=== PATIENT | male | born 1970 | race Two or more races ===

== ENCOUNTER 2021-06-07 12:27 | Inpatient (IN) | payer MEDICAID ==
[~2021-06-07] VITALS: Ht 177.8 cm; Wt 70.0 kg
--- NOTE | 2021-06-07 12:45 | NUR ---
Pt is NOT responding to questions, Non-verbal- moans at times. Awake, Eyes wide open seems confused/disoriented +generalized jerky movements/Twitching constantly. CareGiver at bedside states "This got worse 3days ago".
[2021-06-07 13:31] LABS: BASOPHILS % (AUTO) 0.2 % (0.0-2.0); EOSINOPHILS % (AUTO) 0.4 % (0.0-6.0); HEMATOCRIT 26 % (39-51); HEMOGLOBIN 8.7 g/dL (13.5-17.5); LYMPHOCYTES # (AUTO) 0.2 K/uL (0.8-4.8); LYMPHOCYTES % (AUTO) 9.6 % (20.0-44.0); MEAN CORPUSCULAR HGB CONC 34 g/dl (31.0-36.0); MEAN CORPUSCULAR VOLUME 92 fL (80-96); MONOCYTES # (AUTO) 0.1 K/uL (0.1-1.30); MONOCYTES % (AUTO) 4.7 % (2.0-12.0); NEUTROPHILS # (AUTO) 1.8 K/uL (1.8-8.9); NEUTROPHILS % (AUTO) 85.1 % (43.0-81.0); RED BLOOD CELL COUNT(AUTO) 2.79 MIL/uL (4.5-6.0); WHITE BLOOD COUNT (AUTO) 2.1 K/uL (4.3-11.0)
[2021-06-07 13:36] LABS: PLATELET COUNT (AUTO) 41 K/uL (150-450)
[2021-06-07 13:51] LABS: SERUM AMMONIA 22 umol/L (11-32)
[2021-06-07 13:56] LABS: ALANINE AMINOTRANSFERASE 27 U/L (12-78); ALBUMIN 1.8 g/dL (3.4-5.0); ALCOHOL, BLOOD < 3 mg/dL (0-0); ALKALINE PHOSPHATASE 55 U/L (46-116); ASPARTATE AMINOTRANSFERASE 15 U/L (15-37); BILIRUBIN,DIRECT 0.2 mg/dL (0.0-0.2); BILIRUBIN,TOTAL 0.5 mg/dL (0.2-1.0); CALCIUM, SERUM 8.3 mg/dL (8.5-10.1); CARBON DIOXIDE 13 mmol/L (21-32); CHLORIDE 98 mmol/L (98-107); GLUCOSE 141 mg/dL (74-106); SODIUM SERUM 141 mmol/L (136-145); TOTAL PROTEIN, SERUM 9.3 g/dL (6.4-8.2)
[2021-06-07 13:58] LABS: UREA NITROGEN, BLOOD 204 mg/dL (7-18)
[2021-06-07 13:59] LABS: CREATININE 20.8 mg/dL (0.6-1.3)
[2021-06-07 14:00] LABS: ACETAMINOPHEN 0 ug/ml (10-30); THYROID STIMULATING HORMONE 0.666 uIU/mL (0.358-3.74)
[2021-06-07 14:03] LABS: EOSINOPHILS % (MANUAL) 2 % (0-4); LYMPHOCYTES % (MANUAL) 10 % (16-48); MONOCYTES % (MANUAL) 2 % (0-11.0); NEUTROPHILS % (MANUAL) 86 (42-76)
--- NOTE | 2021-06-07 14:15 | NUR ---
MOVE SHEET SUBMITTED.
--- NOTE | 2021-06-07 14:29 | NUR ---
[facility] CALLED PAYROLL ANALYST PAGED.
[2021-06-07] MEDS ORDERED: DEXTROSE 50%-WATER 50 ML DISP.SYRIN IV ONE (14:30)
[2021-06-07] MEDS ORDERED: FUROSEMIDE 40 MG/4 ML VIAL IV ONE (14:30)
[2021-06-07] MEDS ORDERED: DEXTROSE 50%-WATER 50 ML DISP.SYRIN ONE (14:30)
[2021-06-07] MEDS ORDERED: IV NS 0.9% 1,000 ML BAG IV ONE (14:30)
[2021-06-07] MEDS ORDERED: CALCIUM CHLORIDE 1,000 MG/10 ML DISP.SYRIN IV ONE (14:30)
[2021-06-07] MEDS ORDERED: FUROSEMIDE 40 MG/4 ML VIAL ONE (14:30)
[2021-06-07] MEDS ORDERED: SODIUM BICARBONATE SYR 50 MEQ/50 ML DISP.SYRIN IV ONE (14:30)
[2021-06-07] MEDS ORDERED: ALBUTEROL FS 2.5 MG/3 ML VIAL.NEB NEB ONE (14:30)
[2021-06-07] MEDS ORDERED: INSULIN REGULAR, HUMAN 100 UNIT/ML 10 ML VIAL SQ ONE (14:30)
[2021-06-07] MEDS ORDERED: SODIUM BICARBONATE SYR 50 MEQ/50 ML DISP.SYRIN ONE (14:30)
[2021-06-07] MEDS ORDERED: INSULIN REGULAR, HUMAN 100 UNIT/ML 10 ML VIAL ONE (14:30)
--- NOTE | 2021-06-07 14:30 | NUR ---
Hyperkalemic- Meds given as per orders.
[2021-06-07] MEDS ORDERED: CALCIUM CHLORIDE 1,000 MG/10 ML DISP.SYRIN ONE (14:32)
[2021-06-07] MEDS ORDERED: Z GUARD REMEDY 2 OZ OINT TP PRN (15:00)
[2021-06-07] MEDS ORDERED: MAG HYDROX/AL HYDROX/SIMETH 30 ML UDC PO PRN (15:00)
[2021-06-07] MEDS ORDERED: MAGNESIUM HYDROXIDE 30 ML UDC PO PRN (15:00)
[2021-06-07] MEDS ORDERED: ALBUTEROL FS 2.5 MG/3 ML VIAL.NEB ONE (15:08)
[2021-06-07 15:09] LABS: URIC ACID 18.3 mg/dL (2.6-7.2)
[2021-06-07] MEDS ORDERED: hydrALAZINE HCL IV 20 MG VIAL ONE (15:14)
[2021-06-07] MEDS ORDERED: hydrALAZINE HCL IV 20 MG VIAL IV PRN (15:30)
[2021-06-07 15:46] LABS: POTASSIUM 6.4 mmol/L (3.5-5.1)
[2021-06-07 15:47] LABS: CREATININE 20.2 mg/dL (0.6-1.3)
--- NOTE | 2021-06-07 16:33 | NUR ---
Pt remains confused but is now able to say 1word sentences. Pulled IV line on Right Hand. Bleeding- controlled with direct pressure. Still awaiting ICU bed
--- NOTE | 2021-06-07 16:45 | NUR ---
Dr Antunez called w/request for [employer]. States "patient needs dialysis and he will need access."
[2021-06-07] MEDS ORDERED: DESMOPRESSIN 20 MCG in IV NS 0.9% 50 ML IV ONE (17:30)
[2021-06-07] MEDS ORDERED: LORAZEPAM INJ 2 MG/ML VIAL ONE (17:35)
--- NOTE | 2021-06-07 17:35 | NUR ---
Pt agitated/screaming/kicking and pulling on lines while being prepared for Dialysis cath insertion. Restraints applied as ordered by Blas Coughlin, Medicated.
[2021-06-07] MEDS ORDERED: KETAMINE HCL (500MG/10ML) 50 MG/ML VIAL ONE (17:41)
--- NOTE | 2021-06-07 17:45 | NUR ---
SMITH Coughlin at bedside to insert Dialysis access. Medicated as ordered
[2021-06-07] MEDS ORDERED: LORAZEPAM INJ 2 MG/ML VIAL IV ONE (18:00)
[2021-06-07] MEDS ORDERED: KETAMINE HCL(200MG/20ML) 10 MG/ML VIAL IV ONE (18:00)
--- NOTE | 2021-06-07 18:15 | NUR ---
Covid swab sent
--- NOTE | 2021-06-07 18:36 | NUR ---
GOT ICU BED 258 READY AFTER 1929
[2021-06-07] MEDS ORDERED: DESMOPRESSIN 4 MCG/ML AMPUL ONE ×2 (19:59→20:01)
[2021-06-07] MEDS ORDERED: LORAZEPAM INJ 2 MG/ML VIAL IV PRN (20:00)
[2021-06-07 20:30] VITALS: BP 156/90
--- NOTE | 2021-06-07 20:30 | NUR ---
report given to kalee joel. transferred pt to icu 256 via acls protocol in stable condition. all belongings and meds with pt.
--- NOTE | 2021-06-07 20:35 | NUR ---
HISTORICAL MANUSCRIPTS CURATOR: PT ADMITTED TO ICU FOR RENAL FAILURE AND WILL HAVE EMERGENT HEMODIALYSIS. PT. ON 3L 02 VIA NC BUT KEEPS REMOVING 02 THERAPY. REMAINS 02 SAT 94% AND ABOVE AT ROOM AIR. WT EPISODES OF RESTLESSNESS AND INTERMITTENT TWITCHING. SR WT BBB ON FISHER HAND LINE. F/C INTACT AND PATENT DRAINING CLEAR YELLOW URINE TO GRAVITY. RT. FEMORAL HD CATH IN PLACE. LT. HAND IV SITE INTACT WT NO S/S OF INFILTRATION. HOB AT 35 DEGREES. BED IN LOWEST POSITION AND LOCKED, BED ALARM ACTIVATED. SIDERAILS UP X2. CALL LIGHT KEPT WITHIN REACH. WILL CONTINUE TO MONITOR.
[2021-06-07 21:00] VITALS: BP 135/73
[2021-06-07 21:12] LABS: BILIRUBIN,URINE NEGATIVE (NEGATIVE); COLOR,URINE YELLOW (YELLOW); LEUKOCYTE ESTERASE ,URINE NEGATIVE (NEGATIVE); NITRITE, URINE NEGATIVE (NEGATIVE); PROTEIN,URINE 30 mg/dl (NEGATIVE); UGLUCOSE 100 MG/DL mg/dL (NEGATIVE); UROBILINOGEN,URINE 0.2 EU/dL (0.2)
[2021-06-07 21:17] LABS: BACTERIA,URINE None seen /HPF (None Seen); RBC,URINE 21-50 /HPF (0-2); SQUAMOUS EPITHELIAL CELL,UR 0-2 /HPF (None Seen)
[2021-06-07 21:19] LABS: CREATININE, URINE 38.4 MG/DL (30.0-125.0); URINE TOTAL PROTEIN 226.7 mg/dL (0-11.9)
[2021-06-07 21:30] VITALS: BP 132/67
[2021-06-07] MEDS: IV NS 0.9% 1,000 ML IV PRN (21:32)
[2021-06-07 21:43] LABS: EOSINOPHIL,URINE None Seen
--- NOTE | 2021-06-07 21:45 | NUR ---
HIDES SOAKER: HEMODIALYSIS STARTED. PT. REMAINS NON-VERBAL, UNABLE TO FOLLOW COMMANDS. WT EPISODES OF TRYING TO PULL TUBINGS. BILAT. SOFT WRIST RESTRAINTS IN PLACE. SKIN AND CIRCULATION WNL. WILL CONTINUE TO MONITOR.
[2021-06-07 22:00] VITALS: BP 153/73
[2021-06-07 23:00] VITALS: BP 117/74
--- NOTE | 2021-06-07 23:45 | NUR ---
SALES ORDER CLERK: HEMODIALYSIS DONE WT NO ADVERSE REACTIONS. 2L FLUID REMOVED. PT. REMAINED NON-VERBAL, CONFUSED WT RESTLESSNESS. SR-ST WT HR IN 90s TO LOW 100s. 94% AND ABOVE 02 SAT ON ROOM AIR. SAFETY PRECAUTION NOTED AT ALL TIMES.
[2021-06-08] VITALS (13 sets, daily range): BP systolic 116–162; BP diastolic 67–102
[2021-06-08 04:23] LABS: BASOPHILS % (AUTO) 0.4 % (0.0-2.0); EOSINOPHILS % (AUTO) 0.7 % (0.0-6.0); HEMATOCRIT 22 % (39-51); HEMOGLOBIN 7.6 g/dL (13.5-17.5); LYMPHOCYTES # (AUTO) 0.2 K/uL (0.8-4.8); LYMPHOCYTES % (AUTO) 8.7 % (20.0-44.0); MEAN CORPUSCULAR HGB CONC 34 g/dl (31.0-36.0); MEAN CORPUSCULAR VOLUME 93 fL (80-96); MONOCYTES # (AUTO) 0.1 K/uL (0.1-1.30); NEUTROPHILS # (AUTO) 1.7 K/uL (1.8-8.9); NEUTROPHILS % (AUTO) 87.2 % (43.0-81.0); RED BLOOD CELL COUNT(AUTO) 2.41 MIL/uL (4.5-6.0)
[2021-06-08 04:49] LABS: ALBUMIN 1.7 g/dL (3.4-5.0); BILIRUBIN,TOTAL 0.6 mg/dL (0.2-1.0); CALCIUM, SERUM 8.6 mg/dL (8.5-10.1); POTASSIUM 5.9 mmol/L (3.5-5.1)
[2021-06-08 05:04] LABS: PLATELET COUNT (AUTO) 38 K/uL (150-450)
[2021-06-08 05:06] LABS: WHITE BLOOD COUNT (AUTO) 1.9 K/uL (4.3-11.0)
[2021-06-08 05:14] LABS: CREATININE 14.9 mg/dL (0.6-1.3); PHOSPHORUS 9.7 mg/dL (2.5-4.9)
--- NOTE | 2021-06-08 05:45 | NUR ---
ELECTRIC ARC WELDER: CALLED AND NOTIFIED DR. [facility]. RESULTS: WBC=1.9 FROM 2.1, PLATELETS=38 FROM 41, PHOSPHORUS=9.7, MSY=461 FROM 198, CREAT.=14.9 FROM 20.2; BLEEDS EASILY WHEN POKE WT LAB. DRAW; NO NEW ORDERS AND SAID TO DEFER TO AUDITOR APPRAISER. PT HAS BEEN MORE AWAKE, FOLLOW SIMPLE COMMANDS BUT STILL CONFUSED. REMAINED ROOM AIR. VS WITHIN HIS BASELINE. WILL CONTINUE TO MONITOR.
[2021-06-08] MEDS ORDERED: POTASSIUM CL. PREMIX PERIPHER. 50 ML IV SCH (07:00)
[2021-06-08] MEDS: IV NS 0.9% 1,000 ML IV PRN ×2 (10:11→18:57)
[2021-06-08 10:18] LABS: BAND % (MANUAL) 4 % (0.0-5.0); EOSINOPHILS % (MANUAL) 2 % (0-4); LYMPHOCYTES % (MANUAL) 16 % (16-48); MONOCYTES % (MANUAL) 6 % (0-11.0)
[2021-06-08 10:21] LABS: NEUTROPHILS % (MANUAL) 72 (42-76)
--- NOTE | 2021-06-08 11:05 | NUR ---
RN NOTE PATIENT ON ALVAREZ CATHETER HEMATURIA NOTED, MD AWARE PATIENT PLATELET IS 38
--- NOTE | 2021-06-08 11:05 | NUR ---
RN NOTE PATIENT RECEIVED FROM ICU, PATIENT ON SOFT WRIST RESTRAINTS ATTEMPTING TO PULL IV SITE AND ALVAREZ CATHETER. MADE AWARE.
--- NOTE | 2021-06-08 12:30 | NUR ---
SS note: SS requested to locate next of kin. SW met with pt at his bedside in the med-surg unit. Pt is a 50-year old, male. Pt was alert and oriented x1. Pt presented calm. Pt appeared appropriately groomed. Pt was not responding to questions asked by this SW and would only respond, 'Yes' or nod. Pt presented confused and had to be redirected multiple times. SW attempted to locate next of kin but was unable to obtain information from the pt. MISA spoke to pt's RN Tano. Tano stated that he observed that the pt does not readily respond to questions, but has responded previously. ZULEIKA Freedman stated that next of kin has not been located at this time. Pt's friend will be visiting later today. ZULEIKA Freedman to contact SS for further follow up as needed.
--- NOTE | 2021-06-08 15:22 | NUR ---
RN NOTE PATIENT ON HD, TOLERATING WELL AT THIS TIME.
--- NOTE | 2021-06-08 18:15 | NUR ---
RN NOTE PATIENT IN OBSERVED ON BED, ON O2 VIA NC @3LPM O2 SAT OF 98% TOLERATING WELL, BREATHING EVEN AND UNLABORED, BILATERAL WRIST RESTRAINT SKIN INTACT NO SKIN BREAKDOWN NOTED, PATIENT S/P HD 2000ML REMOVED TOLERATED WELL, PATIENT SEEN BY DR. WALLY BEY MD REGARDING PATIENT CURRENT CONDITION. ON ALVAREZ CATHETER DRAINING WELL VIA GRAVITY, NO HEMATURIA NOTED, ON TELE MONITOR SR NO CHEST PAIN OBSERVED AT THIS TIME, WILL CONTINUE TO MONITOR PATIENT, SAFETY MEASURE OBSERVED, BED WHEELS LOCK, CALL LIGHT WITHIN REACH, WILL ENDORSE TO NOC SHIFT.
--- NOTE | 2021-06-08 18:30 | NUR ---
RN NOTE PATIENT WITH RIGHT FEMORAL HD CATH, IV SITE SITE PATENT INFUSING WELL.
--- NOTE | 2021-06-08 19:40 | NUR ---
RN OPENING NOTE REC'D REPORT FROM ZULEIKA STEELE. REC'D PT IN BED, NON VERBAL, AWAKE. ON ROOM AIR. NO RESP DISTRESS NOTED. NO SOB NOTED. BREATHING EVEN AND UNLABORED. PT ON TELE MONITORING PRESENTS WITH NSR, HEART RATE OF 87. BASELINE TO PT. PT HAS IV SITE, LEFT HAND #22, FLUSHED ASEPTICALLY. FEM HD CATH NOTED. INTACT. ALVARZE CATH PRESENT, VERY MINIMAL BUT PINK TINGED URINE NOTED. SOFT KAMALJIT WRIST RESTRAINTS IN PLACE. PT CONTINUES TO BE CONFUSED, DOES NOT RESPOND TO REORIENTATION, DOES NOT COMPLY WITH INSTRUCTION. CONTINUES TO PULL AT IV AND ALVAREZ CATH. NOURISHMENT PROVIDED. SAFETY MEASURES IN PLACE. APPLICABLE ISOLATION PRECAUTION IN PLACE. HOB ELEVATED. SIDE RAILS X2 BED LOCKED IN LOWEST POSITION. WITH BED ALARM ON. CALL LIGHT WITHIN REACH. NO S/S OF PAIN. ALL NEEDS ATTENDED AT THIS TIME. WILL CONT TO MONITOR.
[2021-06-08] MEDS: ONDANSETRON HCL/PF 4 MG/2 ML VIAL IVP PRN (23:12)
--- NOTE | 2021-06-08 23:16 | NUR ---
RN NOTE PT HAD 1 EPISODE OF VOMITTING, SMALL AMOUNT, GREEN COLORED. PRN ZOFRAN ADMINISTERED 4MG ORDERED.
[2021-06-09] VITALS: BP 155/86
--- NOTE | 2021-06-09 00:03 | NUR ---
RN NOTE NO NEW EPISODES OF EMESIS NOTED, NO S/S OF ASPIRATION AT THIS TIME. PT HOB ELEVATED. WILL CONT TO MONITOR,
[2021-06-09] MEDS: IV NS 0.9% 1,000 ML IV PRN ×2 (01:25→17:39)
--- NOTE | 2021-06-09 02:11 | NUR ---
POSSIBLE TRANSFER SPOKE WITH PHOEBE FROM [facility], REGARDING PT FOR TRANSFER. NO CURRENT ORDER BY HOSPITALIST , BUT PER MORTGAGE SERVICING SPECIALIST. TRANSFER PLANNING IN PLACE.
[2021-06-09 04:00] VITALS: BP 145/96
[2021-06-09] MEDS: ONDANSETRON HCL/PF 4 MG/2 ML VIAL IVP PRN (05:47)
[2021-06-09 06:40] LABS: BASOPHILS % (AUTO) 0.1 % (0.0-2.0); EOSINOPHILS % (AUTO) 1.6 % (0.0-6.0); HEMATOCRIT 21 % (39-51); HEMOGLOBIN 7.1 g/dL (13.5-17.5); LYMPHOCYTES # (AUTO) 0.2 K/uL (0.8-4.8); LYMPHOCYTES % (AUTO) 9.5 % (20.0-44.0); MEAN CORPUSCULAR HGB CONC 34 g/dl (31.0-36.0); MEAN CORPUSCULAR VOLUME 92 fL (80-96); MONOCYTES # (AUTO) 0.1 K/uL (0.1-1.30); MONOCYTES % (AUTO) 3.4 % (2.0-12.0); NEUTROPHILS # (AUTO) 1.4 K/uL (1.8-8.9); NEUTROPHILS % (AUTO) 85.4 % (43.0-81.0); RED BLOOD CELL COUNT(AUTO) 2.27 MIL/uL (4.5-6.0)
[2021-06-09 06:58] LABS: ALBUMIN 1.6 g/dL (3.4-5.0); BILIRUBIN,TOTAL 0.7 mg/dL (0.2-1.0); CALCIUM, SERUM 7.9 mg/dL (8.5-10.1); MAGNESIUM 2.3 mg/dL (1.8-2.4); POTASSIUM 4.7 mmol/L (3.5-5.1); TOTAL PROTEIN, SERUM 8.5 g/dL (6.4-8.2)
--- NOTE | 2021-06-09 07:11 | NUR ---
RN CLOSING NOTE PT IS NOTED TO BE MORE AWAKE, MEMORY IS HAZY, PT VERBALIZED HE DOESNT REMEMBER WHAT HAPPENED. ORIENTED PT TO UNIT, MARKETING SEGMENT MANAGER UTILIZED. PT IS STABLE AT THIS TIME. SAFETY MEASURES IN PLACE. HOB ELEVATED. SIDE RAILS X2 BED LOCKED IN LOWEST POSITION. WITH BED ALARM ON. CALL LIGHT WITHIN REACH. NO S/S OF PAIN. ALL NEEDS ATTENDED AT THIS TIME. WILL ENDORSE TO DAY SHIFT FOR CONT OF CARE
[2021-06-09 07:15] LABS: URIC ACID 6.1 mg/dL (2.6-7.2)
--- NOTE | 2021-06-09 07:30 | NUR ---
RN NOTE PATIENT IN OBSERVED ON BED, ON ROOM AIR O2 SAT OF 98% TOLERATING WELL, BREATHING EVEN AND UNLABORED, BILATERAL WRIST RESTRAINT SKIN INTACT NO SKIN BREAKDOWN NOTED, PATIENT SEEN BY DR. SHARIF UPDATED MD REGARDING PATIENT CURRENT CONDITION. ON ALVAREZ CATHETER DRAINING WELL VIA GRAVITY, ON TELE MONITOR SR NO CHEST PAIN OBSERVED AT THIS TIME, WILL CONTINUE TO MONITOR PATIENT, SAFETY MEASURE OBSERVED, BED WHEELS LOCK, CALL LIGHT WITHIN REACH.
[2021-06-09 07:37] LABS: PLATELET COUNT (AUTO) 28 K/uL (150-450); WHITE BLOOD COUNT (AUTO) 1.7 K/uL (4.3-11.0)
--- NOTE | 2021-06-09 07:39 | NUR ---
RN NOTE NOTIFIED DR. SHARIF WBC OF 1.7 AND PLATELET OF 28, WILL FOLLOW UP WITH .
[2021-06-09 08:00] VITALS: BP 145/96
[2021-06-09 08:18] LABS: PHOSPHORUS 8.2 mg/dL (2.5-4.9)
--- NOTE | 2021-06-09 08:54 | NUR ---
RN NOTE PATIENT SEEN BY DR. SHARIF, UPDATED MD REGARDING BUN AND CREATINE LEVEL, WBC AND PLATELET, WILL CONTINUE TO MONITOR PATIENT.
[2021-06-09 09:56] LABS: BAND % (MANUAL) 1 % (0.0-5.0); EOSINOPHILS % (MANUAL) 1 % (0-4); LYMPHOCYTES % (MANUAL) 11 % (16-48); MONOCYTES % (MANUAL) 2 % (0-11.0); NEUTROPHILS % (MANUAL) 85 (42-76)
[2021-06-09 10:07] LABS: *SPE A/G RATIO 0.4 (0.7-1.7); *SPE ALPHA-1-GLOBULIN 0.5 g/dL (0.0-0.4); *SPE BETA GLOBULIN 0.8 g/dL (0.7-1.3); *SPE M-SPIKE 2.8 g/dL (Not Observed)
[2021-06-09 12:00] VITALS: BP 145/96
[2021-06-09 16:00] VITALS: BP 127/88
[2021-06-09] MEDS: ACETAMINOPHEN 325 MG TABLET PO PRN (18:11)
--- NOTE | 2021-06-09 18:58 | NUR ---
RN NOTE PATIENT IN OBSERVED ON BED, ON ROOM AIR O2 SAT OF 98% TOLERATING WELL, BREATHING EVEN AND UNLABORED, BILATERAL WRIST RESTRAINT SKIN INTACT NO SKIN BREAKDOWN NOTED, PATIENT SEEN BY DR. SHARIF UPDATED MD REGARDING PATIENT CURRENT CONDITION. ON ALVAREZ CATHETER DRAINING WELL VIA GRAVITY, ADMINSITERED TYLENOL ORDERED BY DR. MONTES, SEEN AND EVALUATED BY DR. MONTES ON TELE MONITOR SR NO CHEST PAIN OBSERVED AT THIS TIME, WILL CONTINUE TO MONITOR PATIENT, SAFETY MEASURE OBSERVED, BED WHEELS LOCK, CALL LIGHT WITHIN REACH. WILL ENDORSE TO NOC SHIFT.
--- NOTE | 2021-06-09 19:45 | NUR ---
RN NOTE RECEIVED PT IN BED, SLEEPING AROUSES EASILY, CONFUSED. NO S/SX OF DISTRESS NOTED. ON ROOM AIR SATING AT 96 %. ON TELE MONITORING SHOWS SR WITH HR OF 90. PT BILATERAL WRIST RESTRAINTS, GOOD CIRCULATION, NO SIGNS OF PAIN NOTED. MIDLINE PATENT AND INTACT, NS RUNNING AT 75ML/HR. R FEMORAL HD CATH INTACT, NO BLEEDING NOTED. ALVAREZ DRAINING WELL WITH CLEAR YELLOW URINE. ALL SAFETY MEASURES WERE IN PLACE PER PROTOCOL. WILL CONTINUE TO MONITOR.
[2021-06-09 20:00] VITALS: BP 150/81
[2021-06-10] VITALS: BP 159/83
[2021-06-10 04:00] VITALS: BP 145/85
[2021-06-10] MEDS: ACETAMINOPHEN 325 MG TABLET PO PRN (04:43)
--- NOTE | 2021-06-10 04:43 | NUR ---
RN NOTE NOTED T AT 100.9. PT ALSO COMPLAINING OF BACK PAIN. TYLENOL GIVEN, WILL CONTINUE TO MONITOR.
[2021-06-10] MEDS: IV NS 0.9% 1,000 ML IV PRN ×2 (06:16→20:00)
[2021-06-10 06:36] LABS: BASOPHILS % (AUTO) 0.1 % (0.0-2.0); EOSINOPHILS % (AUTO) 2.4 % (0.0-6.0); LYMPHOCYTES # (AUTO) 0.1 K/uL (0.8-4.8); LYMPHOCYTES % (AUTO) 11.4 % (20.0-44.0); MEAN CORPUSCULAR HGB CONC 34 g/dl (31.0-36.0); MEAN CORPUSCULAR VOLUME 93 fL (80-96); MONOCYTES # (AUTO) 0.1 K/uL (0.1-1.30); MONOCYTES % (AUTO) 4.8 % (2.0-12.0); NEUTROPHILS # (AUTO) 0.9 K/uL (1.8-8.9); NEUTROPHILS % (AUTO) 81.3 % (43.0-81.0)
--- NOTE | 2021-06-10 06:47 | NUR ---
RN NOTE BODY TEMP WENT DOWN TO 98.6. PT ABLE TO FOLLOW SIMPLE COMMANDS. NO CHANGES IN LOC NOTED. CONTINUE WITH RESTRAINTS, GOOD CIRCULATION, NO SKIN BREAKDOWN WERE NOTED. MIDLINE REMAIN PATENT AND INTACT, IV NS AT 75ML/HR. ALVAREZ DRAINING WELL. ALL SAFETY MEASURES MAINTAINED. WILL ENDORSE TO NEXT SHIFT NURSE FOR ZOYA.
--- NOTE | 2021-06-10 07:22 | NUR ---
RN NOTE PATIENT IS IN BED WITH HOB AT SEMI FOWLERS POSITION. PATIENT IS ON ROOM AIR WITH NO SIGNS OF LABORED BREATHING. PATIENT IS AOX1 AND CONFUSED. SOFT BILATERAL WRIST RESTRAINTS ARE APPLIED. STEPHAN MIDLINE IS PATENT AND INTACT. BED IS LOCKED IN THE LOWEST POSITION, 3 GUARD RAILS RAISED, CALL SEXTON WITHIN REACH, AND ALL HOSPITAL SAFETY PRECAUTIONS ARE BEING FOLLOWED. WILL CONTINUE TO MONITOR THROUGHOUT SHIFT.
[2021-06-10 07:29] LABS: WHITE BLOOD COUNT (AUTO) 1.1 K/uL (4.3-11.0)
[2021-06-10 07:30] LABS: HEMATOCRIT 18 % (39-51); HEMOGLOBIN 6.1 g/dL (13.5-17.5); PLATELET COUNT (AUTO) 22 K/uL (150-450); RED BLOOD CELL COUNT(AUTO) 1.94 MIL/uL (4.5-6.0)
--- NOTE | 2021-06-10 07:35 | NUR ---
RN NOTE NOTIFIED DR. SHARIF OF CRITICAL LABS 1.1 WBC, H/H 6.1/18, PLATELETS 22
[2021-06-10 08:00] VITALS: BP 141/77
[2021-06-10] MEDS: SEVELAMER CARBONATE 800 MG TABLET PO SCH ×3 (09:47→17:06)
[2021-06-10] MEDS ORDERED: NEPRO VAN 237 ML CAN PO PRN (10:30)
[2021-06-10] MEDS: PIPERACILLIN /TAZOBACTAM 2.25 G in IV D5W 50 ML IV SCH ×2 (10:52→22:09)
[2021-06-10 11:53] LABS: EOSINOPHILS % (MANUAL) 3 % (0-4); LYMPHOCYTES % (MANUAL) 10 % (16-48); MONOCYTES % (MANUAL) 1 % (0-11.0); NEUTROPHILS % (MANUAL) 83 (42-76)
[2021-06-10] MEDS: TBO-FILGRASTIM 480 MCG/0.8 ML ML SQ SCH (15:19)
[2021-06-10 15:30] LABS: BILIRUBIN,TOTAL 0.4 mg/dL (0.2-1.0); CALCIUM, SERUM 7.4 mg/dL (8.5-10.1); POTASSIUM 4.9 mmol/L (3.5-5.1); TOTAL PROTEIN, SERUM 7.7 g/dL (6.4-8.2)
[2021-06-10 15:32] LABS: CREATININE 11.8 mg/dL (0.6-1.3)
[2021-06-10 15:34] LABS: ALBUMIN 1.4 g/dL (3.4-5.0)
[2021-06-10 15:37] LABS: D-DIMER 3.9 mg/L(FEU (0.17-0.50)
[2021-06-10 16:00] VITALS: BP 146/80
--- NOTE | 2021-06-10 18:59 | NUR ---
RN NOTE PATIENT IS IN BED WITH HOB AT SEMI FOWLERS POSITION. PATIENT IS ON ROOM AIR WITH NO SIGNS OF LABORED BREATHING. PATIENT IS AOX1 AND CONFUSED. SOFT BILATERAL WRIST RESTRAINTS ARE APPLIED. STEPHAN MIDLINE IS PATENT AND INTACT. BED IS LOCKED IN THE LOWEST POSITION, 3 GUARD RAILS RAISED, CALL SEXTON WITHIN REACH, AND ALL HOSPITAL SAFETY PRECAUTIONS ARE BEING FOLLOWED. ALL DUE MEDS GIVEN AND PATIENT REMAINED STABLE THROUGHOUT SHIFT. WILL ENDORSE TO TREE TRIMMER RN.
--- NOTE | 2021-06-10 19:30 | NUR ---
RN OPENING NOTES: RECEIVED PT A/OX1-2 IN BED RESTING COMFORTABLY. PATIENT IN NO S/SX OF ACUTE DISTRESS AT THIS TIME. NO SOB NOTED. PATIENT'S BREATHING IS EVEN AND UNLABORED. PATIENT IS ON ROOM AIR; TOLERATING WELL WITH 02 SAT OF 97% AT THE TIME OF RECEIVED. PATIENT ON RENAL DIET; TOLERATES WELL. NOTED IV SITE ON R UA MIDLINE #18 ; PATENT, INTACT AND FLUSHING WELL; NO S/S OF INFECTION OR INFILTRATION. WITH IV FLUID RUNNING ORDERED.PT ALSO HAS R FEMORAL HD CATH; SECURED AND INTACT NO SIGNS OF INFECTION. ALVAREZ CATH IN PLACE, SMALL AMOUNT OF URINE OUTPUT NOTED. WITH BILATERAL SOFT RESTRAINTS IN PLACED, MONITORED AND ASSESSED PER PROTOCOL. AWAITING FOR BLOOD FROM [facility] FOR BLOOD TRANSFUSION WILL FOLLOW UP WITH LAB WITHIN THE SHIFT. SAFETY MEASURES HAVE BEEN PROVIDED AND IMPLEMENTED. PATIENT BED ALARM IS ON. HEAD OF BED ELEVATED. BED IS LOCKED, IN LOWEST POSITION AND SIDE RAILS UP. CALL LIGHT WITHIN REACH OF THE PATIENT. APPLICABLE ISOLATION PRECAUTIONS IN PLACE. WILL CONTINUE TO MONITOR AND REASSESS FOR ANY CHANGES AND WILL CARRY OUT ANY ONGOING AND ACTIVE MD ORDER.
[2021-06-10 20:00] VITALS: BP 148/70
[2021-06-10] MEDS ORDERED: VANCOMYCIN 1 GM in IV D5W 250 ML IV ONE (21:00)
[2021-06-10] MEDS: ONDANSETRON HCL/PF 4 MG/2 ML VIAL IVP PRN (23:48)
[2021-06-11] VITALS (9 sets, daily range): BP systolic 124–146; BP diastolic 63–86
--- NOTE | 2021-06-11 | NUR ---
RN NOTES PATIENT REMAINED TO BE IN NO SIGNS OF ACUTE RESPIRATORY DISTRESS ,STONE CARRIAGE OPERATOR MADE AWARE. WILL CONTINUE TO MONITOR AND REASSESS FOR ANY CHANGES THROUGHOUT THE SHIFT.
--- NOTE | 2021-06-11 03:40 | NUR ---
ZULEIKA NOTES CALLED LAB, TO FOLLOW UP BLOOD FROM [facility]; SPOKE TO JOSEPH FROM BLOOD BANK AND CONFIRMED THAT BLOOD IS ALREADY AVAILABLE, SHE SAID SHE WILL DO CROSS MATCH AND WILL CALLBACK IF BLOOD IS AVAILABLE FOR FAMILY ADVOCATE. RN ACKNOWLEDGED. ROAD CROSSING GUARD MADE AWARE. Addendum: 06/11/21 at 0619 by YAW PAYNE RN @0600- RECEIVED CALL FROM LAB; SPOKE WITH JOSEPH, WAS ADVISED THAT BLOOD IS READY FOR FAMILY ADVOCATE.
[2021-06-11] MEDS: PIPERACILLIN /TAZOBACTAM 2.25 G in IV D5W 50 ML IV SCH ×3 (04:00→22:05)
--- NOTE | 2021-06-11 04:00 | NUR ---
RN NOTES NO NOTED CHANGES IN PATIENT CONDITION AT THIS TIME; PATIENT VITALS STABLE, NO SIGNS OF ACUTE RESPIRATORY DISTRESS. AM PATIENT CARE RENDERED. OIL FILTERS INSPECTOR MADE AWARE. WILL CONTINUE TO MONITOR AND REASSESS FOR ANY CHANGES THROUGHOUT THE SHIFT.
--- NOTE | 2021-06-11 06:15 | NUR ---
RN NOTES STARTED 1 BAG OF PRBC ORDERED. INITIAL VITAL SIGNS TAKEN AND NOTED TO BE WNL. INFUSED PER PROTOCOL. WILL CONTINUE TO MONITOR AND ASSESS FOR ANY BLOOD TRANSFUSION REACTION AND ADDRESS ACCORDINGLY. BRASS WIND INSTRUMENT MAKER WELL AWARE.
[2021-06-11 06:36] LABS: URIC ACID 5.5 mg/dL (2.6-7.2)
[2021-06-11 07:01] LABS: BILIRUBIN,TOTAL 0.4 mg/dL (0.2-1.0); CALCIUM, SERUM 7.2 mg/dL (8.5-10.1); POTASSIUM 4.3 mmol/L (3.5-5.1); TOTAL PROTEIN, SERUM 7.7 g/dL (6.4-8.2)
[2021-06-11 07:25] LABS: BASOPHILS % (AUTO) 0.1 % (0.0-2.0); EOSINOPHILS % (AUTO) 2.5 % (0.0-6.0); LYMPHOCYTES # (AUTO) 0.2 K/uL (0.8-4.8); LYMPHOCYTES % (AUTO) 11.4 % (20.0-44.0); MEAN CORPUSCULAR HGB CONC 34 g/dl (31.0-36.0); MEAN CORPUSCULAR VOLUME 92 fL (80-96); MONOCYTES % (AUTO) 2.9 % (2.0-12.0); NEUTROPHILS # (AUTO) 1.2 K/uL (1.8-8.9); NEUTROPHILS % (AUTO) 83.1 % (43.0-81.0)
[2021-06-11 07:35] LABS: HEMATOCRIT 17 % (39-51); HEMOGLOBIN 5.8 g/dL (13.5-17.5); PLATELET COUNT (AUTO) 18 K/uL (150-450); RED BLOOD CELL COUNT(AUTO) 1.84 MIL/uL (4.5-6.0); WHITE BLOOD COUNT (AUTO) 1.5 K/uL (4.3-11.0)
[2021-06-11 07:54] LABS: ALBUMIN 1.3 g/dL (3.4-5.0); CREATININE 8.2 mg/dL (0.6-1.3)
--- NOTE | 2021-06-11 08:01 | NUR ---
MS RN NOTE PATIENT IN BED ALERT ORIENTED, ON 2L NC NO SOB NOTED AT THIS TIME, WITH SOFT RESTRAIN , CIRCULATION CHECKED, SKIN WARM AND DRY, RT UPPER ARM MID LINE IN PLCE , WITH CONT BLOOD TRANSFUSION ORDERED, LT FEMORAL HD CATH IN PLACE ALL NEEDS ATTENDED, WILL CONT TO MONITOR
[2021-06-11] MEDS: SEVELAMER CARBONATE 800 MG TABLET PO SCH ×3 (08:09→17:27)
[2021-06-11 08:41] LABS: EOSINOPHILS % (MANUAL) 2 % (0-4); LYMPHOCYTES % (MANUAL) 10 % (16-48); MONOCYTES % (MANUAL) 1 % (0-11.0); NEUTROPHILS % (MANUAL) 87 (42-76)
--- NOTE | 2021-06-11 13:11 | NUR ---
FULLERETTE NOTE SEEN BY DR ALMAZAN PSYCHOLOGY ASSISTANT AWARE THAT BUN 62 CREAT 8.2, WITH TO CONT IVF NO HD TODAY
[2021-06-11] MEDS: IV NS 0.9% 1,000 ML IV PRN (13:30)
[2021-06-11] MEDS: TBO-FILGRASTIM 480 MCG/0.8 ML ML SQ SCH (14:48)
[2021-06-11 15:33] LABS: HEMOGLOBIN 6.9 g/dL (13.5-17.5)
--- NOTE | 2021-06-11 17:01 | NUR ---
teletype installer note hg 6.9 dr kelly notified with order to give one more unit ,order carried out
--- NOTE | 2021-06-11 17:46 | NUR ---
TELE NURSE NOTE UNABLE TO REMOVE RETRAIN. PATIENT WANTING TO PULL IV OUT.
--- NOTE | 2021-06-11 18:29 | NUR ---
TELE NURSE NOTE. NS RUNNING AT 75ML/HR. PROVIDE COMFORT MEASURES. PATIENT IS COMFORTABLE. DINNER WAS FED BY MANAGER MECHANICAL MAINTENANCE. PUT BE IN LOWEST POSITION WITH SIDE RAIL UP. RETRAIN WAS REMOVED. WILL ENDORSE TO ON COMING NURSE.
--- NOTE | 2021-06-11 18:49 | NUR ---
TELE NURSE NOTE CALLED LAB REGARDING BLOOD PRODUCT. LAB STATED BLOOD PRODUCT WAS NOT READY.
--- NOTE | 2021-06-11 19:00 | NUR ---
registered nurse cardiac telemetry note unable to remove soft restrain ,still at risk for remove all lines ,will monitor
--- NOTE | 2021-06-11 21:20 | NUR ---
RN notes Received patient in bed with no distress noted. Breathing even and unlabored. On 2lpm via nasal cannula tolerating well. Alert, hebrew speaking with very little turkish and with episodes of confusion. On bilateral wrist restraints for pulling out life sustaining support. Release every two hours for hygiene, repositioning and circulation. On 75ml/h NS for hydration tolerating well. Still awaiting blood bank for the second bag of PRBC. No complaint of pain or discomfort. Report given to ZULEIKA Charlton. Kept clean and dry. Transferred to [facility] room 312 bed 1
--- NOTE | 2021-06-11 21:40 | NUR ---
RN NOTES Patient was transferred from [facility] , patient is on bilateral soft wrist restraint, circulation on bilateral upper extremities was checked, F/C draining yellow urine with streaked of blood -MD was aware, not in distress, no pain noted, make patient comfortable, sideraisupx2, will continue to monitor
--- NOTE | 2021-06-11 21:50 | NUR ---
RN NOTES Inessa from blood bank called and informed me that she spoke to doctor regarding patient blood which has antibody and per [place] they can give blood with the lowest type of antigen but per MD don't give it. Will going to wait for the availability of the blood
[2021-06-11] MEDS ORDERED: MEROPENEM 500 MG in IV NS 0.9% 50 ML IV SCH (22:30)
[2021-06-11] MEDS ORDERED: MEROPENEM 500 MG VIAL IV ONE (23:26)
[2021-06-11] MEDS ORDERED: MEROPENEM 500 MG in IV NS 0.9% 50 ML IV ONE (23:30)
[2021-06-12] VITALS (7 sets, daily range): BP systolic 108–150; BP diastolic 62–84
--- NOTE | 2021-06-12 01:12 | NUR ---
RN NOTES Called blood bank to follow up patient's blood- still there' no blood available
--- NOTE | 2021-06-12 02:10 | NUR ---
RN SELENA Chávez called from the blood bank and informed me that the blood still not available from the [facility] and will call Dr. Ritter regarding this matter
[2021-06-12] MEDS: ACETAMINOPHEN 325 MG TABLET PO PRN ×2 (02:11→17:37)
[2021-06-12] MEDS: IV NS 0.9% 1,000 ML IV PRN (04:09)
[2021-06-12 06:28] LABS: BASOPHILS % (AUTO) 0.1 % (0.0-2.0); EOSINOPHILS % (AUTO) 5.4 % (0.0-6.0); LYMPHOCYTES # (AUTO) 0.2 K/uL (0.8-4.8); LYMPHOCYTES % (AUTO) 15.6 % (20.0-44.0); MEAN CORPUSCULAR HGB CONC 34 g/dl (31.0-36.0); MEAN CORPUSCULAR VOLUME 92 fL (80-96); MONOCYTES % (AUTO) 2.5 % (2.0-12.0); NEUTROPHILS # (AUTO) 1.1 K/uL (1.8-8.9); NEUTROPHILS % (AUTO) 76.4 % (43.0-81.0)
[2021-06-12 06:44] LABS: CALCIUM, SERUM 7.2 mg/dL (8.5-10.1); PHOSPHORUS 7.2 mg/dL (2.5-4.9); POTASSIUM 4.1 mmol/L (3.5-5.1)
--- NOTE | 2021-06-12 06:48 | NUR ---
RN NOTES PT is sleeping but arousable, not in distress, blood still not available, will endorse to incoming nurse,circulation on both bilateral extremities are good, morning care rendered, siderailsupx2, pt. needs attended
[2021-06-12 06:51] LABS: CREATININE 10.1 mg/dL (0.6-1.3)
[2021-06-12 06:58] LABS: HEMATOCRIT 20 % (39-51); HEMOGLOBIN 6.9 g/dL (13.5-17.5); PLATELET COUNT (AUTO) 15 K/uL (150-450); WHITE BLOOD COUNT (AUTO) 1.4 K/uL (4.3-11.0)
--- NOTE | 2021-06-12 07:45 | NUR ---
RN OPENING NOTES Patient seen comfortably lying in bed, no apparent distress noted, respirations even and unlabored, no SOB, no grimacing. Patient has restraints on, no circulation impairment noted, skin warm to touch, no pallor or cyanosis at this time. Sheppard catheter draining yellowish with streak of blood, no unusual odor noted, no cloudiness noted with output. Safety precautions maintained, brakes locked, side rails up X2, call light left within reach, will monitor closely for any changes.
[2021-06-12] MEDS: ACYCLOVIR 200 MG CAPSULE PO SCH (08:34)
[2021-06-12] MEDS: SEVELAMER CARBONATE 800 MG TABLET PO SCH ×3 (08:34→17:21)
[2021-06-12] MEDS: FLUCONAZOLE (100 MG) 100 MG TABLET PO SCH (08:34)
[2021-06-12 09:51] LABS: BAND % (MANUAL) 1 % (0.0-5.0); EOSINOPHILS % (MANUAL) 6 % (0-4); LYMPHOCYTES % (MANUAL) 24 % (16-48); MONOCYTES % (MANUAL) 1 % (0-11.0); MYELOCYTES % 1 % (0-0); NEUTROPHILS % (MANUAL) 67 (42-76)
--- NOTE | 2021-06-12 11:00 | NUR ---
RN MS NOTES PT IN BED, WITH DIALYSIS ONGOING, TOLERATES WELL, NO BLEEDING NOTED, SIMON COMMERCIAL PRINT SALESMAN FOR DR. ESTRELLA AWARE OF PT'S LATEST LAB RESULTS AND THAT WE ARE STILL WAITING FOR THE BLOOD FROM [facility].
--- NOTE | 2021-06-12 12:45 | NUR ---
Patient S/P hemodialysis session today, 500ml removed per MD order, tolerated well, no apparent distress at this time, will monitor closely for any changes.
[2021-06-12] MEDS: MEROPENEM 500 MG in IV NS 0.9% 50 ML IV SCH ×2 (12:58→22:23)
--- NOTE | 2021-06-12 14:18 | NUR ---
Received a call from laboratory, spoke to Xin and she said that Dr. Ashford (Director of pathologist) recommends not to do blood transfusion for patient today, hgb levels is 6.9, no apparent distress noted with patient right now, no s/s of bleeding. Per Dr. Bullock, inform oncologist regarding the situation. Ivory MTZ of Dr. Castle (oncologist) made aware and she said okay to hold blood transfusion for today, and will recheck levels tomorrow, will monitor closely for any changes
[2021-06-12] MEDS: TBO-FILGRASTIM 480 MCG/0.8 ML ML SQ SCH (15:16)
[2021-06-12] MEDS: ALLOPURINOL 100 MG TABLET PO SCH (17:21)
--- NOTE | 2021-06-12 18:14 | NUR ---
RN CLOSING NOTES Patient seen lying in bed, no apparent distress noted, respirations even and unlabored, no SOB. All needs attended, due medications given per MD order, tolerated well. Call light left within reach, safety precautions maintained, brakes locked, side rails up X2, will endorse to next shift for continuity of care.
[2021-06-12] MEDS: VANCOMYCIN 500 MG in IV D5W 100 ML IV PRN (18:54)
--- NOTE | 2021-06-12 19:00 | NUR ---
MS RN OPENING NOTE RECEIVED PT AWAKE IN BED. A/OX1-2 . PT ON 4L WITH EPISODES OF CONFUSION. 02 VIA NC SATS 94%. NO SOB NOTED. NO S/S OF RESPIRATORY DISTRESS. PT IS BR. PT HS NO C/O PAIN AT THIS TIME. IV ACCESS OIN R UPPER ARM MIDLINE WRIST , INFUSING NS @ 75ML/HR. IV IS INTACT, PATENT, AND FLUSHING WELL. ALVAREZ CATHETER IN PLACE DRAINING YELLOWISH WITH STREAK OF BLOOD. SAFETY MEASURES MAINTAINED. BD IN LOWEST LOCKED POSITION, HOB ELEVATED, SIDE RAILS UP X2. CALL LIGHT AND TABLE WITHIN REACH. WILL CONTINUE WITH PLAN OF CARE.
[2021-06-12] MEDS: HYDROCODONE/APAP 5/325MG TABLET PO PRN (21:56)
[2021-06-13] MEDS: MORPHINE SULFATE INJ 2 MG/ML DISP.SYRIN IV PRN ×4 (01:28→22:25)
[2021-06-13] MEDS: IV NS 0.9% 1,000 ML IV PRN (04:58)
--- NOTE | 2021-06-13 06:32 | NUR ---
MS RN CLOSING NOTE PT IS IN BED AWAKE. NON VERBAL BUT FOLLOWS COMMANDS. PT IS STABLE ON OXYGEN VIA NC. NO SOB OR RESPIRATORY DISTRESS NOTED THROUGH SHIFT.ALL NEEDS HAVE BEEN MET. ALL CARE, NEEDS, MEDICATIONS, PAIN MEDICATION AND TREATMENT ADMINISTERED ANTICIPATED PER ORDER.SAFETY, SEIZURE, AND ASPIRATION PRECAUTIONS MAINTAINED AT ALL TIMES. BED IN LOWEST LOCKED POSITION, HOB ELEVATED, SIDE RAILS UP X2, CALL LIGHT AND TABLE WITHIN REACH. WILL ENDORSE TO ONCOMING NURSE.
--- NOTE | 2021-06-13 06:33 | NUR ---
MS RN CLOSING NOTE PT IS IN BED AWAKE. A/OX3. PT IS STABLE ON OXYGEN VIA NC. NO SOB OR RESPIRATORY DISTRESS NOTED THROUGH SHIFT.ALL NEEDS HAVE BEEN MET. ALL CARE, NEEDS, MEDICATIONS, PAIN MEDICATION AND TREATMENT ADMINISTERED ANTICIPATED PER ORDER.SAFETY, SEIZURE, AND ASPIRATION PRECAUTIONS MAINTAINED AT ALL TIMES. BED IN LOWEST LOCKED POSITION, HOB ELEVATED, SIDE RAILS UP X2, CALL LIGHT AND TABLE WITHIN REACH. WILL ENDORSE TO ONCOMING NURSE.
--- NOTE | 2021-06-13 06:53 | NUR ---
PT STEPHAN MIDLINE NOT FLUSHING.
--- NOTE | 2021-06-13 07:01 | NUR ---
PT STEPHAN MIDLINE NOT FLUSHING. WILL ENDORSE TO MORNING NURSE.
[2021-06-13 07:16] LABS: BASOPHILS % (AUTO) 0.2 % (0.0-2.0); EOSINOPHILS % (AUTO) 5.5 % (0.0-6.0); HEMATOCRIT 21 % (39-51); HEMOGLOBIN 7.1 g/dL (13.5-17.5); LYMPHOCYTES # (AUTO) 0.2 K/uL (0.8-4.8); LYMPHOCYTES % (AUTO) 17.6 % (20.0-44.0); MEAN CORPUSCULAR HGB CONC 34 g/dl (31.0-36.0); MEAN CORPUSCULAR VOLUME 93 fL (80-96); MONOCYTES % (AUTO) 3.9 % (2.0-12.0); NEUTROPHILS # (AUTO) 0.8 K/uL (1.8-8.9); NEUTROPHILS % (AUTO) 72.8 % (43.0-81.0); RED BLOOD CELL COUNT(AUTO) 2.27 MIL/uL (4.5-6.0)
[2021-06-13 07:26] LABS: BILIRUBIN,DIRECT 0.1 mg/dL (0.0-0.2); BILIRUBIN,TOTAL 0.3 mg/dL (0.2-1.0); CALCIUM, SERUM 7.5 mg/dL (8.5-10.1); CREATININE 7.3 mg/dL (0.6-1.3); PHOSPHORUS 5.9 mg/dL (2.5-4.9); POTASSIUM 4.1 mmol/L (3.5-5.1); TOTAL PROTEIN, SERUM 7.5 g/dL (6.4-8.2)
[2021-06-13 07:29] LABS: ALBUMIN 1.2 g/dL (3.4-5.0)
[2021-06-13 08:00] VITALS: BP 147/98
[2021-06-13] MEDS: FLUCONAZOLE (100 MG) 100 MG TABLET PO SCH (08:15)
[2021-06-13] MEDS: ACYCLOVIR 200 MG CAPSULE PO SCH (08:15)
[2021-06-13] MEDS: SEVELAMER CARBONATE 800 MG TABLET PO SCH ×3 (08:15→17:02)
[2021-06-13 08:17] LABS: PLATELET COUNT (AUTO) 14 K/uL (150-450); WHITE BLOOD COUNT (AUTO) 1.1 K/uL (4.3-11.0)
[2021-06-13 08:52] LABS: BAND % (MANUAL) 1 % (0.0-5.0); EOSINOPHILS % (MANUAL) 6 % (0-4); LYMPHOCYTES % (MANUAL) 19 % (16-48); METAMYELOCYTES % 1 % (0-0); MONOCYTES % (MANUAL) 2 % (0-11.0); NEUTROPHILS % (MANUAL) 71 (42-76)
--- NOTE | 2021-06-13 09:00 | NUR ---
RN OPENING NOTE PT AWAKE IN BED. ON 4L NC WITH SOB ON REST AND NO RESPIRATORY DISTRESS. A/O X3 AND UNDERSTANDS SERBIAN. EPISODES OF CONFUSION. NO PEOPLE MANAGER PRESENT. NO EDEMA PRESENT. F/C PRESENT AND DRAINING WELL, MD AWARE. BEDBOUND. SKIN IS INTACT. MIDLINE PRESENT OF STEPHAN AND FLUSHES WELL. HD CATH PRESENT ON L FEMORAL. LABS AND ORDERS REVIEWED. SAFETY MEASURES IN PLACE. SIDE RAILS RAISED. BED LOWERED. CALL LIGHT WITHIN REACH. WILL CONTINUE TO MONITOR.
[2021-06-13] MEDS: MEROPENEM 500 MG in IV NS 0.9% 50 ML IV SCH ×2 (10:02→22:15)
--- NOTE | 2021-06-13 13:31 | NUR ---
RN NOTE BLOOD TRANSFUSION WITHHELD. WILL WAIT FOR MORNING LABS TOMORROW. OK TO GIVE BLOOD TRANSFUSION WITH HEMODIALYSIS TOMORROW
[2021-06-13] MEDS: TBO-FILGRASTIM 480 MCG/0.8 ML ML SQ SCH (14:45)
[2021-06-13 16:03] VITALS: BP 140/84
--- NOTE | 2021-06-13 18:53 | NUR ---
RN CLOSING NOTE PT AWAKE IN BED. PT REFUSES OXYGEN, PULSE OXIMETRY CHECKED, NO SOB AND NO RESPIRATORY DISTRESS. A/O X3 AND UNDERSTANDS ICELANDIC. NO EQUIPMENT INSTALLATION PROFESSIONAL PRESENT. NO EDEMA PRESENT. F/C PRESENT AND DRAINING WELL. BEDBOUND. SKIN IS INTACT. MIDLINE PRESENT OF STEPHAN AND FLUSHES WELL. HD CATH PRESENT ON L FEMORAL. HD TOMORROW. ROUTINE MEDS GIVEN. LABS AND ORDERS REVIEWED. SAFETY MEASURES IN PLACE. SIDE RAILS RAISED. BED LOWERED. ROUTINE MEDS GIVEN. CALL LIGHT WITHIN REACH. REPORT TO BE GIVEN TO NIGHT NURSE FOR ZOYA.
--- NOTE | 2021-06-13 19:15 | NUR ---
RN OPENING NOTES PT AWAKE IN BED, A/O X3, ABLE TO VERBALIZE NEEDS. HE DENIES ANY PAIN OR DISCOMFORT AT THIS TIME. ON ROOM AIR, O2 SAT 96%. DENIES SOB. IV SITE STEPHAN MIDLINE INTACT, PATENT AND FLUSHES WELL. AND HD CATH ON L-FEMORAL INTACT WITH DRESSING C/D/I. F/C IN PLACE, DRAINING CLEAR YELLOW URINE, NO HEMATURIA AT THIS TIME. PT IN NO ACUTE DISTRESS. SAFETY MEASURES IN PLACE, BED IN LOWEST LOCKED POSITION, S/R UP X2, CALL LIGHT AND TABLE WITHIN EASY REACH. WILL CONTINUE TO MONITOR.
[2021-06-13 20:20] VITALS: BP 129/78
[2021-06-14 06:40] LABS: BASOPHILS % (AUTO) 0.2 % (0.0-2.0); LYMPHOCYTES # (AUTO) 0.2 K/uL (0.8-4.8); LYMPHOCYTES % (AUTO) 16.4 % (20.0-44.0); MEAN CORPUSCULAR HGB CONC 34 g/dl (31.0-36.0); MEAN CORPUSCULAR VOLUME 91 fL (80-96); MONOCYTES % (AUTO) 3.5 % (2.0-12.0); NEUTROPHILS # (AUTO) 0.9 K/uL (1.8-8.9); NEUTROPHILS % (AUTO) 74.9 % (43.0-81.0); RED BLOOD CELL COUNT(AUTO) 2.21 MIL/uL (4.5-6.0)
--- NOTE | 2021-06-14 06:44 | NUR ---
RN CLOSING NOTES PT RESTING IN BED, EASILY AWAKENS TO STIMULI. A/OX3. DENIES ANY PAIN OR DISCOMFORT AT THIS TIME. ON O2 @2LPM VIA NC DURING THE NIGHT. O2 SAT 96%. NO SOB NOTED. SLEPT WELL DURING THE NIGHT. NO ACUTE DISTRESS NOTED. ALL NEEDS ATTENDED TO. SAFETY MEASURES MAINTAINED, BED IN LOWEST LOCKED POSITION, S/R UP X2, CALL LIGHT WITHIN REACH. ENDORSED TO NEXT SHIFT NURSE.
[2021-06-14 06:46] LABS: URIC ACID 6.7 mg/dL (2.6-7.2)
[2021-06-14 06:49] LABS: CALCIUM, SERUM 7.9 mg/dL (8.5-10.1); POTASSIUM 4.3 mmol/L (3.5-5.1)
[2021-06-14 06:54] LABS: CREATININE 9.7 mg/dL (0.6-1.3)
[2021-06-14 06:55] LABS: HEMATOCRIT 20 % (39-51); HEMOGLOBIN 6.8 g/dL (13.5-17.5); WHITE BLOOD COUNT (AUTO) 1.2 K/uL (4.3-11.0)
[2021-06-14 06:56] LABS: PLATELET COUNT (AUTO) 15 K/uL (150-450)
[2021-06-14 07:14] LABS: D-DIMER 9.99 mg/L(FEU (0.17-0.50)
--- NOTE | 2021-06-14 07:15 | NUR ---
RN NOTE RECEIVED CALL FROM LAB FOR CRIT.RESULTS: WBC 1.2, HGB 6.8, HCT 20, PLT 15. ENDORSED TO AM RNHANNAH, HE WILL INFORM MD PT HAS TRANSFUSION PARAMETERS, AND HE WILL CONFIRM ORDERS WITH MD IN AM.
[2021-06-14 08:00] VITALS: BP 138/75
--- NOTE | 2021-06-14 08:00 | NUR ---
RN NOTE NOTIFED DR SHARIF ABOUT CRITICAL LAB VALUES WBC 1.2, HGB 6.8, HCT 20, PLT 15. MD ACKNOWLEDGED INFORMATION. NO NEW ORDERS RECEIVED. PT NOT IN DISTRESS. WILL CONTINUE TO MONITOR.
--- NOTE | 2021-06-14 08:00 | NUR ---
RN OPENING NOTE PT AWAKE IN BED. ON 4L NC WITH SOB ON REST AND NO RESPIRATORY DISTRESS. A/O X3 AND UNDERSTANDS ROMANSH. EPISODES OF CONFUSION. NO GOLD LEAF PRINTER PRESENT. NO EDEMA PRESENT. F/C PRESENT AND DRAINING WELL, MD AWARE. BEDBOUND. SKIN IS INTACT. MIDLINE PRESENT OF STEPHAN AND FLUSHES WELL. HD CATH PRESENT ON R FEMORAL. LABS AND ORDERS REVIEWED. SAFETY MEASURES IN PLACE. SIDE RAILS RAISED. BED LOWERED. CALL LIGHT WITHIN REACH. WILL CONTINUE TO MONITOR
[2021-06-14] MEDS: SEVELAMER CARBONATE 800 MG TABLET PO SCH ×3 (08:12→18:32)
[2021-06-14] MEDS: ACYCLOVIR 200 MG CAPSULE PO SCH (08:13)
[2021-06-14] MEDS: FLUCONAZOLE (100 MG) 100 MG TABLET PO SCH (08:13)
[2021-06-14] MEDS: MORPHINE SULFATE INJ 2 MG/ML DISP.SYRIN IV PRN ×2 (08:22→14:23)
[2021-06-14] MEDS: MEROPENEM 500 MG in IV NS 0.9% 50 ML IV SCH ×2 (10:23→22:03)
[2021-06-14 14:04] LABS: BAND % (MANUAL) 4 % (0.0-5.0); EOSINOPHILS % (MANUAL) 2 % (0-4); LYMPHOCYTES % (MANUAL) 17 % (16-48); METAMYELOCYTES % 2 % (0-0); MONOCYTES % (MANUAL) 4 % (0-11.0); MYELOCYTES % 1 % (0-0); NEUTROPHILS % (MANUAL) 70 (42-76)
[2021-06-14] MEDS: TBO-FILGRASTIM 480 MCG/0.8 ML ML SQ SCH (14:23)
[2021-06-14 16:00] VITALS: BP 156/102
[2021-06-14] MEDS ORDERED: ALTEPLASE CATHFLO 2 MG/VIAL XX ONE (17:30)
[2021-06-14] MEDS ORDERED: ALTEPLASE 100 MG/VIAL VIAL IV ONE (17:30)
--- NOTE | 2021-06-14 18:40 | NUR ---
RN CLOSING NOTE PT AWAKE IN BED. PT REFUSES OXYGEN, PULSE OXIMETRY CHECKED, NO SOB AND NO RESPIRATORY DISTRESS. A/O X3 AND UNDERSTANDS KYRGYZ. NO SUPERVISOR COMMISSARY PRODUCTION PRESENT. NO EDEMA PRESENT. F/C PRESENT AND DRAINING WELL. BEDBOUND. SKIN IS INTACT. MIDLINE PRESENT OF STEPHAN AND FLUSHES WELL. HD CATH PRESENT ON L FEMORAL. HD TOMORROW. ROUTINE MEDS GIVEN. LABS AND ORDERS REVIEWED. SAFETY MEASURES IN PLACE. SIDE RAILS RAISED. BED LOWERED. ROUTINE MEDS GIVEN. CALL LIGHT WITHIN REACH. REPORT TO BE GIVEN TO NIGHT NURSE FOR ZOYA.
--- NOTE | 2021-06-14 19:45 | NUR ---
MS RN OPENING NOTE PT A/OX3; ABLE TO MAKE NEEDS KNOWN. ON R/A; TOLERATING WELL WITH NO SOB. STEPHAN MIDLINE S/L; PATENT AND INTACT. L FEMORAL HD YOLANDA CATH; DRESSING KEPT C/D/I. HD NURSE AT BEDSIDE AND COMPLETED HD WITH 500ML OUT. VSS; DENIES N/V/D. F/C DRAINING CLEAR YELLOW URINE; PATENT AND INTACT. SAFETY MEASURES IN PLACE: BED IN LOWEST LOCKED POSITION; SIDE RAILS UPX2, CALL LIGHT WITHIN EASY REACH. PATIENT IN STABLE CONDITION; WILL CONT PLAN OF CARE.
[2021-06-14 20:00] VITALS: BP 148/81
--- NOTE | 2021-06-14 20:00 | NUR ---
MS RN NOTE DR. ESTRELLA AT PTS BEDSIDE WITH ORDERS TO TRANSFUSED PRBC TONIGHT. HGB 6.8 HCT 20 PLT 15
[2021-06-14] MEDS: VANCOMYCIN 500 MG in IV D5W 100 ML IV PRN (20:08)
[2021-06-14] MEDS ORDERED: ACETAMINOPHEN 325 MG TABLET PO ONE (20:30)
[2021-06-14] MEDS ORDERED: diphenhydrAMINE HCL 50 MG/ML VIAL IV ONE (20:30)
[2021-06-14] MEDS: HYDROCODONE/APAP 5/325MG TABLET PO PRN (21:10)
--- NOTE | 2021-06-14 22:18 | NUR ---
MS RN NOTE PT C/O 04/18 BACK PAIN. ADMINISTERED NORCO ORDERED. WILL REASSESS FOR PAIN IN 30 MINUTES
[2021-06-15] VITALS (11 sets, daily range): BP systolic 146–155; BP diastolic 56–96
--- NOTE | 2021-06-15 01:28 | NUR ---
MS RN NOTE CALLED LAB TO F/U IF PRBC IS READY. AWAITING CALL BACK
--- NOTE | 2021-06-15 03:10 | NUR ---
MS RN NOTE - PRBC INITIATED PRBC X1UNIT PER DR ESTRELLA'S ORDERS. BP 154/93. P 77. RR 22. T 98.1F. PATIENT WARM TO TOUCH, RESP ARE EVEN AND UNLABORED. NO A/R AT THIS TIME; WILL CONT TO MONITOR FOR A/R
[2021-06-15] MEDS: HYDROCODONE/APAP 5/325MG TABLET PO PRN (03:11)
--- NOTE | 2021-06-15 03:11 | NUR ---
MS RN NOTE PT C/O 04/18 BACK PAIN. ADMINISTERED NORCO ORDERED. WILL REASSESS FOR PAIN IN 30 MINUTES
--- NOTE | 2021-06-15 03:25 | NUR ---
MS RN NOTE - PRBC PT TOLERATING BLOOD TRANSFUSION WELL @50ML/HR. INCREASED TO 75M/HR. NO A/R, N/V/D, RASHES, SOB, FEVER NOTED. VSS. PT SLEEPING COMFORTABLY. WILL CONT TO MONITOR FOR A/R
--- NOTE | 2021-06-15 06:15 | NUR ---
MS RN CLOSING NOTE PT A/OX3; ABLE TO MAKE NEEDS KNOWN. ON O2 2LPM VIA N/C; TOLERATING WELL WITH NO SOB. STEPHAN MIDLINE S/L; PATENT AND INTACT. COMPLETED PRBC X1 UNIT. NO A/R NOTED: NO N/V/D, AFEBRILE. VSS. L FEMORAL HD YOLANDA CATH; DRESSING KEPT C/D/I. F/C DRAINING CLEAR YELLOW URINE; PATENT AND INTACT. SAFETY MEASURES IN PLACE: BED IN LOWEST LOCKED POSITION; SIDE RAILS UPX2, CALL LIGHT WITHIN EASY REACH. PATIENT IN STABLE CONDITION; WILL ENDORSE PLAN OF CARE TO ONCOMING MORNING RN.
--- NOTE | 2021-06-15 07:30 | NUR ---
MS RN OPENING NOTES RECEIVED PT AWAKE ON BED AND A/OX3. ON O2 AT 2LPM VIA NASAL CANNULA, TOLERATING WELL WITH NO SOB. WITH IV ACCESS AT STEPHAN MIDLINE S/L; PATENT AND INTACT. WITH LEFT FEMORAL HD YOLANDA CATH; DRESSING KEPT C/D/I. F/C DRAINING CLEAR YELLOW URINE; PATENT AND INTACT. SAFETY MEASURES IN PLACED: BED ON LOWEST LOCKED POSITION; SIDE RAILS UPX2, CALL LIGHT WITHIN EASY REACH. WILL CONTINUE TO MONITOR.
[2021-06-15 07:41] LABS: CALCIUM, SERUM 7.5 mg/dL (8.5-10.1); PHOSPHORUS 6.7 mg/dL (2.5-4.9); POTASSIUM 4.3 mmol/L (3.5-5.1)
[2021-06-15 07:47] LABS: BASOPHILS % (AUTO) 0.3 % (0.0-2.0); HEMATOCRIT 24 % (39-51); HEMOGLOBIN 8.1 g/dL (13.5-17.5); LYMPHOCYTES # (AUTO) 0.2 K/uL (0.8-4.8); LYMPHOCYTES % (AUTO) 12.9 % (20.0-44.0); MEAN CORPUSCULAR HGB CONC 34 g/dl (31.0-36.0); MEAN CORPUSCULAR VOLUME 90 fL (80-96); NEUTROPHILS # (AUTO) 1.1 K/uL (1.8-8.9); NEUTROPHILS % (AUTO) 80.8 % (43.0-81.0); RED BLOOD CELL COUNT(AUTO) 2.62 MIL/uL (4.5-6.0)
[2021-06-15 08:00] LABS: PLATELET COUNT (AUTO) 14 K/uL (150-450); WHITE BLOOD COUNT (AUTO) 1.3 K/uL (4.3-11.0)
[2021-06-15 08:08] LABS: CREATININE 8.2 mg/dL (0.6-1.3)
[2021-06-15] MEDS: MORPHINE SULFATE INJ 2 MG/ML DISP.SYRIN IV PRN ×3 (08:12→22:40)
[2021-06-15] MEDS: SEVELAMER CARBONATE 800 MG TABLET PO SCH ×3 (08:14→18:16)
[2021-06-15] MEDS: FLUCONAZOLE (100 MG) 100 MG TABLET PO SCH (08:14)
[2021-06-15 09:16] LABS: BAND % (MANUAL) 5 % (0.0-5.0); EOSINOPHILS % (MANUAL) 4 % (0-4); LYMPHOCYTES % (MANUAL) 12 % (16-48); METAMYELOCYTES % 1 % (0-0); MONOCYTES % (MANUAL) 7 % (0-11.0); NEUTROPHILS % (MANUAL) 71 (42-76)
[2021-06-15] MEDS: ACYCLOVIR 200 MG CAPSULE PO SCH (09:28)
[2021-06-15] MEDS: MEROPENEM 500 MG in IV NS 0.9% 50 ML IV SCH ×2 (10:13→22:25)
[2021-06-15] MEDS: TBO-FILGRASTIM 480 MCG/0.8 ML ML SQ SCH (14:21)
--- NOTE | 2021-06-15 19:01 | NUR ---
MS RN CLOSING NOTES PT RESTING ON BED AND A/OX3. ON O2 AT 2LPM VIA NASAL CANNULA, TOLERATING WELL WITH NO SOB. WITH IV ACCESS AT STEPHAN MIDLINE S/L; PATENT AND INTACT. WITH LEFT FEMORAL HD YOLANDA CATH. F/C DRAINING CLEAR YELLOW URINE; PATENT AND INTACT. SAFETY MEASURES IN PLACED: BED ON LOWEST LOCKED POSITION; SIDE RAILS UPX2, CALL LIGHT WITHIN EASY REACH. WILL ENDORSE TO NEXT SHIFT.
--- NOTE | 2021-06-15 19:55 | NUR ---
MS RN OPENING NOTE RECEIVED PT AWAKE IN BED. A/O X3. PT IS ON 2LPM O2 VIA NC SATURATING AT 100%. NO SOB OR S/S OF RESPIRATORY DISTRESS NOTED. PT HAS NO C/O PAIN OR DISCOMFORT AT THIS TIME. IV ACCESS IN STEPHAN MIDLINE SALINE-LOCKED; INTACT AND PATENT. PT NOTED WITH LEFT FEMORAL HD YOLANDA CATH. ALVAREZ CATH IN PLACE DRAINING CLEAR YELLOW URINE. SAFETY PRECAUTIONS MAINTAINED. BED IN LOWEST LOCKED POSITION, HOB ELEVATED, SIDE RAILS UP X2. CALL LIGHT AND TABLE WITHIN REACH. WILL CONTINUE WITH PLAN OF CARE.
--- NOTE | 2021-06-15 22:40 | NUR ---
RN PAIN PT C/O ACHING PAIN IN LOWER STOMACH, RATED 9/10 ON PAIN SCALE. VSS. PER PT REQUEST, ADMINISTERED MORPHINE SULFATE 2MG IV Q4H PRN FOR PAIN. WILL REASSESS IN 30 MINS AND CONTINUE TO MONITOR PT.
[2021-06-16] MEDS: MORPHINE SULFATE INJ 2 MG/ML DISP.SYRIN IV PRN ×3 (03:36→21:11)
--- NOTE | 2021-06-16 03:36 | NUR ---
RN PAIN PT C/O ACHING PAIN IN THE LOWER BACK, RATED 10/10 ON PAIN SCALE. VSS. PER PT REQUEST, ADMINISTERED MORPHINE SULFATE 2MG IV Q4H PRN FOR PAIN. WILL REASSESS IN 30 MINS AND CONTINUE TO MONITOR PT.
[2021-06-16 05:28] LABS: BASOPHILS % (AUTO) 0.4 % (0.0-2.0); EOSINOPHILS % (AUTO) 1.8 % (0.0-6.0); HEMATOCRIT 21 % (39-51); HEMOGLOBIN 7.3 g/dL (13.5-17.5); LYMPHOCYTES # (AUTO) 0.2 K/uL (0.8-4.8); LYMPHOCYTES % (AUTO) 8.7 % (20.0-44.0); MEAN CORPUSCULAR HGB CONC 35 g/dl (31.0-36.0); MEAN CORPUSCULAR VOLUME 90 fL (80-96); MONOCYTES # (AUTO) 0.1 K/uL (0.1-1.30); MONOCYTES % (AUTO) 3.5 % (2.0-12.0); NEUTROPHILS # (AUTO) 1.5 K/uL (1.8-8.9); NEUTROPHILS % (AUTO) 85.6 % (43.0-81.0); RED BLOOD CELL COUNT(AUTO) 2.35 MIL/uL (4.5-6.0)
[2021-06-16 05:35] LABS: WHITE BLOOD COUNT (AUTO) 1.7 K/uL (4.3-11.0)
[2021-06-16 05:36] LABS: PLATELET COUNT (AUTO) 13 K/uL (150-450)
[2021-06-16 05:58] LABS: CALCIUM, SERUM 7.7 mg/dL (8.5-10.1); PHOSPHORUS 7.3 mg/dL (2.5-4.9); POTASSIUM 4.8 mmol/L (3.5-5.1)
[2021-06-16 06:10] LABS: EOSINOPHILS % (MANUAL) 3 % (0-4); LYMPHOCYTES % (MANUAL) 9 % (16-48); MONOCYTES % (MANUAL) 4 % (0-11.0); NEUTROPHILS % (MANUAL) 84 (42-76)
[2021-06-16 06:18] LABS: CREATININE 10.2 mg/dL (0.6-1.3)
--- NOTE | 2021-06-16 07:13 | NUR ---
MS RN CLOSING NOTE PT IS AWAKE IN BED. A/O X3. PT IS ON 2LPM O2 VIA NC SATURATING AT 100%. NO SOB OR S/S OF RESPIRATORY DISTRESS NOTED. PT HAS NO C/O PAIN OR DISCOMFORT AT THIS TIME. IV ACCESS IS INTACT, PATENT, AND FLUSHING WELL. PT NOTED WITH LEFT FEMORAL HD YOLANDA CATH. ALVAREZ CATH IN PLACE DRAINING CLEAR YELLOW URINE. ALL NEEDS HAVE BEEN MET. SAFETY PRECAUTIONS MAINTAINED AT ALL TIMES. BED IN LOWEST LOCKED POSITION, HOB ELEVATED, SIDE RAILS UP X2. CALL LIGHT AND TABLE WITHIN REACH. WILL ENDORSE TO ONCOMING NURSE FOR ZOYA.
[2021-06-16 07:56] VITALS: BP 146/88
[2021-06-16] MEDS: SEVELAMER CARBONATE 800 MG TABLET PO SCH ×3 (08:40→17:17)
[2021-06-16] MEDS: ACYCLOVIR 200 MG CAPSULE PO SCH (08:40)
[2021-06-16] MEDS: FLUCONAZOLE (100 MG) 100 MG TABLET PO SCH (08:40)
--- NOTE | 2021-06-16 11:00 | NUR ---
m/s manager of application development: notes hd nurse here and preparing pt for tx. will continue to monitor.
--- NOTE | 2021-06-16 11:20 | NUR ---
m/s automobile travel club counselor: notes obtained consent from pt for tunneled catheter placement and verbalized understanding. hd tx in progress.
[2021-06-16 12:55] VITALS: BP 165/82
--- NOTE | 2021-06-16 12:55 | NUR ---
m/s club steward: notes hd completed with 700 uf per hd nurse. no distress noted. vss. will continue to monitor.
[2021-06-16] MEDS: MEROPENEM 500 MG in IV NS 0.9% 50 ML IV SCH ×2 (13:19→23:25)
--- NOTE | 2021-06-16 14:45 | NUR ---
m/s instrument designer: nephro f/u seen by dr. quinn with verbal order to d'c ronquillo. order carried out. ronquillo catheter removed as ordered, lynda well and obtained 300ml of urine output. instructed to call for assistance.
[2021-06-16] MEDS: ALLOPURINOL 100 MG TABLET PO SCH (15:57)
[2021-06-16 16:00] VITALS: BP 151/86
[2021-06-16] MEDS: VANCOMYCIN 500 MG in IV D5W 100 ML IV PRN (16:27)
--- NOTE | 2021-06-16 19:00 | NUR ---
m/s metal fabricator welder: notes report given to gaurav (kalee) for continuity of care.
--- NOTE | 2021-06-16 19:45 | NUR ---
MSRN FULLY AWAKE PATIENT STATED HE HAS TOO MUCH PAIN FROM NECK DOWN TO SPINE. MORPHINE 2 MG IVP ADMINISTERED WITH RELIEG AFTER FEW MINUTES. REPOSITIONED. ALL NEEDS MADE.02 MAINTAINED, CLOSELY WATCHED
[2021-06-16 20:00] VITALS: BP 127/75
--- NOTE | 2021-06-17 01:00 | NUR ---
MSRN HAS BEEN MEDICATED FOR PAIN NEEDED, STATED MORPHINE HELPS. NO OTHER COMPLAINTS MADE,
[2021-06-17] MEDS: MORPHINE SULFATE INJ 2 MG/ML DISP.SYRIN IV PRN ×3 (01:08→13:48)
[2021-06-17 05:10] LABS: BILIRUBIN,URINE NEGATIVE (NEGATIVE); COLOR,URINE RED (YELLOW); LEUKOCYTE ESTERASE ,URINE NEGATIVE (NEGATIVE); NITRITE, URINE NEGATIVE (NEGATIVE); PROTEIN,URINE 100 mg/dl (NEGATIVE); UGLUCOSE 100 MG/DL mg/dL (NEGATIVE); UROBILINOGEN,URINE 0.2 EU/dL (0.2)
[2021-06-17 05:19] LABS: BACTERIA,URINE Few /HPF (None Seen); RBC,URINE TOO NUMEROUS TO COUN /HPF (0-2); SQUAMOUS EPITHELIAL CELL,UR Rare /HPF (None Seen); WBC,URINE 21-50 /HPF (0-3)
[2021-06-17] MEDS ORDERED: ANESTHESIA TRAY IN PYXIS 1 EA TRAY MC ONE (06:32)
[2021-06-17] MEDS ORDERED: HEPARIN SODIUM, PORCINE 1,000 UNIT/ML VIAL ONE ×2 (06:32→06:33)
[2021-06-17] MEDS ORDERED: LIDOCAINE 1% INJ 50 ML MDV IJ ONE (06:33)
--- NOTE | 2021-06-17 06:45 | NUR ---
MSRN WENT TO OR VIA BED. ENDORSED TO INCOMING RN.
[2021-06-17 06:53] LABS: BASOPHILS % (AUTO) 0.1 % (0.0-2.0); EOSINOPHILS % (AUTO) 0.9 % (0.0-6.0); LYMPHOCYTES # (AUTO) 0.2 K/uL (0.8-4.8); LYMPHOCYTES % (AUTO) 10.6 % (20.0-44.0); MEAN CORPUSCULAR HGB CONC 35 g/dl (31.0-36.0); MEAN CORPUSCULAR VOLUME 90 fL (80-96); MONOCYTES # (AUTO) 0.1 K/uL (0.1-1.30); MONOCYTES % (AUTO) 4.7 % (2.0-12.0); NEUTROPHILS # (AUTO) 1.4 K/uL (1.8-8.9); NEUTROPHILS % (AUTO) 83.7 % (43.0-81.0); RED BLOOD CELL COUNT(AUTO) 2.08 MIL/uL (4.5-6.0)
[2021-06-17 07:05] LABS: CALCIUM, SERUM 7.8 mg/dL (8.5-10.1); PHOSPHORUS 6.5 mg/dL (2.5-4.9); POTASSIUM 4.4 mmol/L (3.5-5.1)
[2021-06-17 07:08] LABS: CREATININE 8.8 mg/dL (0.6-1.3)
--- NOTE | 2021-06-17 07:12 | NUR ---
RN OPENING NOTE- REPORT RECEIVED. PT IN OR AT PRESENT FOR PERMACATH PLACEMENT.
--- NOTE | 2021-06-17 07:40 | NUR ---
RN NOTE- PT BACK TO UNIT FROM OR. DR NUNEZ ORDERED ONE UNIT PLATELETS TO BE INFUSED AND WILL TAKE PT BACK TO OR AFTER. PT TO REMAIN NPO. ORDERED. AWAITING BLOOD BANK.
[2021-06-17 07:46] LABS: URIC ACID 5.9 mg/dL (2.6-7.2)
[2021-06-17 08:00] VITALS: BP 142/88
[2021-06-17] MEDS: SEVELAMER CARBONATE 800 MG TABLET PO SCH ×3 (08:00→18:00)
[2021-06-17 08:02] LABS: WHITE BLOOD COUNT (AUTO) 1.6 K/uL (4.3-11.0)
[2021-06-17 08:03] LABS: HEMATOCRIT 19 % (39-51); HEMOGLOBIN 6.5 g/dL (13.5-17.5); PLATELET COUNT (AUTO) 12 K/uL (150-450)
--- NOTE | 2021-06-17 08:04 | NUR ---
RN NOTE- LAB PHONED CRITICAL VALUES - WBC 1.6 HGB- 6.5 HCT 19 PLT - 12 NOTIFIED
--- NOTE | 2021-06-17 08:30 | NUR ---
RN NOTE- SPOKE W OR. TOLD STAFF TO NOTIFY DR NUNEZ OF PT LABS THIS MORNING. HE'LL NEED PRBC TRANSFUSION PER STANDING ORDER. SMITH PERRY NOTIFIED WELL.
[2021-06-17] MEDS: ACYCLOVIR 200 MG CAPSULE PO SCH (09:00)
[2021-06-17] MEDS: FLUCONAZOLE (100 MG) 100 MG TABLET PO SCH (09:00)
--- NOTE | 2021-06-17 10:20 | NUR ---
RN NOTE- PHONED BLOOD BANK TO CHECK STATUS OF PLATELETS. NO REPLY
[2021-06-17] MEDS: MEROPENEM 500 MG in IV NS 0.9% 50 ML IV SCH ×2 (11:19→23:08)
[2021-06-17] MEDS ORDERED: ACETAMINOPHEN 325 MG TABLET PO ONE (12:30)
[2021-06-17] MEDS ORDERED: diphenhydrAMINE HCL 50 MG/ML VIAL IV ONE ×2 (12:30→16:00)
[2021-06-17 12:48] LABS: BAND % (MANUAL) 3 % (0.0-5.0); LYMPHOCYTES % (MANUAL) 10 % (16-48); METAMYELOCYTES % 1 % (0-0); MONOCYTES % (MANUAL) 6 % (0-11.0); NEUTROPHILS % (MANUAL) 80 (42-76)
--- NOTE | 2021-06-17 13:00 | NUR ---
RN NOTE- BLOOD BANK CALLED. STILL NO PLATELETS. ALSO PT TO HAVE PRBCS. CALL UNANSWERED. SALESPERSON MEN'S AND BOYS' CLOTHING NOTIFIED. CALL PLACED TO HOUSE SUP
[2021-06-17 15:48] VITALS: BP 143/90
--- NOTE | 2021-06-17 15:55 | NUR ---
RN NOTE- INITIATED PLATELETS AT THIS TIME. BENADRYL 25 MG IV AND TYLENOL 650 MG PO ADMINISTERED.
[2021-06-17] MEDS: ACETAMINOPHEN 325 MG TABLET PO PRN (16:08)
--- NOTE | 2021-06-17 16:27 | NUR ---
RN NOTE- PLATELETS INFUSING . VS- BP- 144/82, HR- 90, RR- 18, TEMP - 98.4
--- NOTE | 2021-06-17 17:05 | NUR ---
RN NOTE- TEMP AT 99.6. MONITORING
--- NOTE | 2021-06-17 17:20 | NUR ---
RN NOTE- TRANSFUSION ONE UNIT PLATELETS COMPLETE AT 1650. TEMP ELEVATED. MONITORING PT.
--- NOTE | 2021-06-17 18:11 | NUR ---
RN NOTE- RECHECK TEMP AT THIS TIME. 99.0. PT COMFORTABLE IN NO DISTRESS
--- NOTE | 2021-06-17 18:26 | NUR ---
RN CLOSING NOTE- PT IS AWAKE IN BED. A/O X3. PT NPO STATUS. HAD TRANSFUSION OF ONE UNIT PLATELETS TODAY. PT IS ON 2LPM O2 VIA NC SATURATING AT 100%. NO SOB OR S/S OF RESPIRATORY DISTRESS NOTED. PT HAS NO C/O PAIN OR DISCOMFORT AT THIS TIME. IV ACCESS IS INTACT, PATENT, AND FLUSHING WELL. PT NOTED WITH LEFT FEMORAL HD YOLANDA CATH. PT USING URINAL. ALL NEEDS HAVE BEEN MET. SAFETY PRECAUTIONS MAINTAINED AT ALL TIMES. BED IN LOWEST LOCKED POSITION, HOB ELEVATED, SIDE RAILS UP X2. CALL LIGHT AND TABLE WITHIN REACH. WILL ENDORSE TO ONCOMING NOC RN
--- NOTE | 2021-06-17 19:39 | NUR ---
MS RN OPENING NOTE RECEIVED PT AWAKE IN BED. A/OX3 . PT ON 2L OXYGEN VIA NC. NO SOB NOTED. NO S/S OF RESPIRATORY DISTRESS. PT IS BR. PT HS NO C/O PAIN AT THIS TIME. IV ACCESS OIN R UPPER ARM MIDLINE , INTACT, PATENT, AND FLUSHING WEL. SAFETY MEASURES MAINTAINED. BD IN LOWEST LOCKED POSITION, HOB ELEVATED, SIDE RAILS UP X2. CALL LIGHT AND TABLE WITHIN REACH. WILL CONTINUE WITH PLAN OF CARE.
[2021-06-17 20:00] VITALS: BP 158/98
[2021-06-18 06:28] LABS: BASOPHILS % (AUTO) 0.3 % (0.0-2.0); EOSINOPHILS % (AUTO) 1.2 % (0.0-6.0); HEMATOCRIT 21 % (39-51); HEMOGLOBIN 7.1 g/dL (13.5-17.5); LYMPHOCYTES # (AUTO) 0.2 K/uL (0.8-4.8); LYMPHOCYTES % (AUTO) 8.7 % (20.0-44.0); MEAN CORPUSCULAR HGB CONC 35 g/dl (31.0-36.0); MEAN CORPUSCULAR VOLUME 91 fL (80-96); MONOCYTES # (AUTO) 0.1 K/uL (0.1-1.30); MONOCYTES % (AUTO) 3.7 % (2.0-12.0); NEUTROPHILS # (AUTO) 1.7 K/uL (1.8-8.9); NEUTROPHILS % (AUTO) 86.1 % (43.0-81.0); RED BLOOD CELL COUNT(AUTO) 2.26 MIL/uL (4.5-6.0)
--- NOTE | 2021-06-18 06:30 | NUR ---
MS RN CLOSING NOTE PT IS IN BED AWAKE. A/OX4. PT IS NPO EXCEPT MEDS, STABLE ON ROOM AIR AT THIS TIME. NO SOB OR RESPIRATORY DISTRESS NOTED THROUGH SHIFT.ALL NEEDS HAVE BEEN MET. ALL CARE, NEEDS, MEDICATIONS, PAIN MEDICATION AND TREATMENT ADMINISTERED ANTICIPATED PER ORDER.SAFETY, SEIZURE, AND ASPIRATION PRECAUTIONS MAINTAINED AT ALL TIMES. BED IN LOWEST LOCKED POSITION, HOB ELEVATED, SIDE RAILS UP X2, CALL LIGHT AND TABLE WITHIN REACH. WILL ENDORSE TO ONCOMING NURSE.
[2021-06-18 07:52] LABS: CALCIUM, SERUM 8.1 mg/dL (8.5-10.1); POTASSIUM 4.8 mmol/L (3.5-5.1)
[2021-06-18 07:54] LABS: PHOSPHORUS 10.6 mg/dL (2.5-4.9)
[2021-06-18 07:55] LABS: MAGNESIUM 2.5 mg/dL (1.8-2.4); PLATELET COUNT (AUTO) 26 K/uL (150-450)
--- NOTE | 2021-06-18 08:00 | NUR ---
RN OPENING NOTE PT AWAKE IN BED. ON RA WITH NO SOB AND NO RESPIRATORY DISTRESS. A/O X3 AND UNDERSTANDS SAMI. EPISODES OF CONFUSION. NO CLINICAL TRIAL DATA MANAGER PRESENT. NO EDEMA PRESENT. BEDBOUND. SKIN IS INTACT. MIDLINE PRESENT OF STEPHAN AND FLUSHES WELL. HD CATH PRESENT ON R FEMORAL. LABS AND ORDERS REVIEWED. SAFETY MEASURES IN PLACE. SIDE RAILS RAISED. BED LOWERED. CALL LIGHT WITHIN REACH. WILL CONTINUE TO MONITOR
[2021-06-18 08:07] VITALS: BP 152/94
[2021-06-18] MEDS: ACYCLOVIR 200 MG CAPSULE PO SCH (08:56)
[2021-06-18] MEDS: FLUCONAZOLE (100 MG) 100 MG TABLET PO SCH (08:56)
[2021-06-18] MEDS: SEVELAMER CARBONATE 800 MG TABLET PO SCH ×3 (08:56→17:11)
[2021-06-18 11:02] LABS: EOSINOPHILS % (MANUAL) 3 % (0-4); LYMPHOCYTES % (MANUAL) 7 % (16-48); MONOCYTES % (MANUAL) 4 % (0-11.0); NEUTROPHILS % (MANUAL) 86 (42-76)
[2021-06-18] MEDS: MEROPENEM 500 MG in IV NS 0.9% 50 ML IV SCH ×2 (12:04→22:14)
[2021-06-18] MEDS: MORPHINE SULFATE INJ 2 MG/ML DISP.SYRIN IV PRN ×2 (12:21→18:47)
[2021-06-18 17:38] VITALS: BP 152/94
--- NOTE | 2021-06-18 18:57 | NUR ---
RN CLOSING NOTE PT AWAKE IN BED. ON RA WITH NO SOB AND NO RESPIRATORY DISTRESS. A/O X3 AND UNDERSTANDS SLOVENIAN. EPISODES OF CONFUSION. NO FIG BAR MACHINE OPERATOR PRESENT. NO EDEMA PRESENT. BEDBOUND. SKIN IS INTACT. MIDLINE PRESENT OF STEPHAN AND FLUSHES WELL. HD CATH PRESENT ON R FEMORAL. NPO POST MIDNIGHT FOR PROCEDURE. LABS AND ORDERS REVIEWED. SAFETY MEASURES IN PLACE. SIDE RAILS RAISED. BED LOWERED. CALL LIGHT WITHIN REACH. REPORT TO BE GIVEN TO NIGHT NURSE FOR ZOYA.
[2021-06-18] MEDS: ACETAMINOPHEN 325 MG TABLET PO PRN (19:27)
--- NOTE | 2021-06-18 19:29 | NUR ---
MS RN NOTE PATIENT HAVING 101.5 TEMPERATURE. GIVEN TYLENOL PRN. INITIATED COOLING MEASURES.
--- NOTE | 2021-06-18 19:30 | NUR ---
MS RN NOTE PATIENT IN BED AWAKE. SETSWANA SPEAKING. NO S/S OF APPARENT DISTRESS IN ROOM AIR. NO C/O PAIN. PATIENT WARM TO TOUCH. PATIENT MADE KNOWN THAT HE IS NPO POST MIDNIGHT. NO FLUIDS RUNNING AT THIS TIME. SAFETY IN PLACE. WILL CONTINUE TO MONITOR.
[2021-06-18 20:00] VITALS: BP 147/85
[2021-06-19 06:24] LABS: HEMOGLOBIN 7.1 g/dL (13.5-17.5); LYMPHOCYTES # (AUTO) 0.1 K/uL (0.8-4.8); MONOCYTES # (AUTO) 0.1 K/uL (0.1-1.30); NEUTROPHILS # (AUTO) 1.3 K/uL (1.8-8.9)
[2021-06-19 07:04] LABS: CALCIUM, SERUM 7.8 mg/dL (8.5-10.1); MAGNESIUM 2.3 mg/dL (1.8-2.4); PHOSPHORUS 6.3 mg/dL (2.5-4.9); POTASSIUM 4.2 mmol/L (3.5-5.1)
[2021-06-19 07:07] LABS: BASOPHILS % (AUTO) 0.3 % (0.0-2.0); EOSINOPHILS % (AUTO) 0.7 % (0.0-6.0); LYMPHOCYTES % (AUTO) 8.9 % (20.0-44.0); MEAN CORPUSCULAR HGB CONC 35 g/dl (31.0-36.0); MEAN CORPUSCULAR VOLUME 90 fL (80-96); MONOCYTES % (AUTO) 4.7 % (2.0-12.0); NEUTROPHILS % (AUTO) 85.4 % (43.0-81.0); RED BLOOD CELL COUNT(AUTO) 2.27 MIL/uL (4.5-6.0)
[2021-06-19 07:12] LABS: CREATININE 8.9 mg/dL (0.6-1.3)
--- NOTE | 2021-06-19 07:23 | NUR ---
no significant change. report given to Joseph for cont. of care
[2021-06-19] MEDS: SEVELAMER CARBONATE 800 MG TABLET PO SCH ×3 (07:28→17:20)
[2021-06-19 07:31] LABS: HEMATOCRIT 20 % (39-51)
[2021-06-19 07:32] LABS: PLATELET COUNT (AUTO) 23 K/uL (150-450); WHITE BLOOD COUNT (AUTO) 1.5 K/uL (4.3-11.0)
--- NOTE | 2021-06-19 07:36 | NUR ---
RN OPENING NOTE PT AWAKE IN BED. ON RA WITH NO SOB AND NO RESPIRATORY DISTRESS. A/O X3 AND UNDERSTANDS CHINESE. EPISODES OF CONFUSION. NO PLATE FURNACE OPERATOR PRESENT. NO EDEMA PRESENT. BEDBOUND. SKIN IS INTACT. MIDLINE PRESENT OF STEPHAN AND FLUSHES WELL. HD CATH PRESENT ON R FEMORAL. NPO POST MIDNIGHT FOR UPCOMING PROCEDURE. CONSENTS AND CHECKLIST IN CHART. LABS AND ORDERS REVIEWED. SAFETY MEASURES IN PLACE. SIDE RAILS RAISED. BED LOWERED. CALL LIGHT WITHIN REACH. WILL CONTINUE TO MONITOR
[2021-06-19] MEDS: FLUCONAZOLE (100 MG) 100 MG TABLET PO SCH (09:00)
[2021-06-19] MEDS: ACYCLOVIR 200 MG CAPSULE PO SCH (09:00)
[2021-06-19] MEDS: MEROPENEM 500 MG in IV NS 0.9% 50 ML IV SCH ×2 (10:00→22:01)
[2021-06-19] MEDS: MORPHINE SULFATE INJ 2 MG/ML DISP.SYRIN IV PRN ×3 (10:00→23:45)
[2021-06-19] MEDS ORDERED: ALLO100T25 PO (10:02)
[2021-06-19] MEDS ORDERED: FLUC100T8 PO ×2 (10:02→10:20)
[2021-06-19] MEDS ORDERED: SEVE800T7 PO (10:02)
[2021-06-19] MEDS ORDERED: ACYC200C31 PO ×2 (10:02→10:20)
[2021-06-19 11:43] LABS: BAND % (MANUAL) 3 % (0.0-5.0); LYMPHOCYTES % (MANUAL) 10 % (16-48); MONOCYTES % (MANUAL) 4 % (0-11.0); NEUTROPHILS % (MANUAL) 83 (42-76)
[2021-06-19 13:03] LABS: CHOLESTEROL 63 mg/dL (<200); HDL CHOLESTEROL 12 mg/dL (40-60); LDL 19 mg/dL (0-99); TRIGLYCERIDES 214 mg/dL (30-150)
--- NOTE | 2021-06-19 13:10 | NUR ---
RN NOTE RECEIVED CALL FROM DR HERNÁNDEZ TO GIVE PLATELETS STAT PRIOR TO PROCEDURE. ORDER IN EMR. WENT TO BLOOD BANK TO WIRE MESH GATE ASSEMBLER PLATELETS. BLOOD BANK UNABLE TO SEND. WILL ATTEMPT TO WIRE MESH GATE ASSEMBLER AGAIN IN 5 MINS
--- NOTE | 2021-06-19 14:10 | NUR ---
RN NOTE PT STARTED ON PLATELET TRANSFUSION. TRANSFUSION STARTED ON DOWNTIME. FORM AND BLOOD VERIFIED BY CIRILO TO. V/S CHECKED PRIOR TO TRANSFUSION. WILL CONTINUE TO MONITOR.
--- NOTE | 2021-06-19 14:25 | NUR ---
RN NOTE PLATELET TRANSFUSION RUNNING WELL. V/S CHECKED AND STABLE. NO S/S OF ADVERSE REACTION. RATE INCREASE. WILL CONTINUE TO MONITOR.
[2021-06-19] MEDS ORDERED: HEPARIN SODIUM, PORCINE 1,000 UNIT/ML VIAL ONE (15:07)
[2021-06-19] MEDS ORDERED: LIDOCAINE 0.5% HCL 50 ML VIAL ONE (15:07)
[2021-06-19] MEDS ORDERED: LIDOCAINE 1% INJ 50 ML MDV IJ ONE (15:08)
[2021-06-19] MEDS ORDERED: FENTANYL PF 100MCG/2ML AMPUL ONE (15:46)
--- NOTE | 2021-06-19 18:15 | NUR ---
RN CLOSING NOTE PT AWAKE IN BED. ON RA WITH NO SOB AND NO RESPIRATORY DISTRESS. A/O X3 AND UNDERSTANDS FRISIAN. EPISODES OF CONFUSION. NO COMPLAINT OF PAIN. NO COMPLAINT OF NAUSEA. NO SHOT CORE DRILL OPERATOR HELPER PRESENT. NO EDEMA PRESENT. BEDBOUND. SKIN IS INTACT. MIDLINE PRESENT OF STEPHAN AND FLUSHES WELL. HD CATH PRESENT ON R FEMORAL. HD CATH PRESENT ON L IJ. S/P TUNNELED CATHETER INSERTION. LABS AND ORDERS REVIEWED. SAFETY MEASURES IN PLACE. SIDE RAILS RAISED. BED LOWERED. CALL LIGHT WITHIN REACH. WILL GIVE REPORT TO NIGHT NURSE FOR ZOYA.
--- NOTE | 2021-06-19 19:45 | NUR ---
ADMINISTERED MORPHINE PER MD ORDER. VITAL SIGNS STABLE. WILL CONTINUE TO MONITOR.
--- NOTE | 2021-06-19 19:50 | NUR ---
MS RN OPENING NOTES PT AWAKE IN BED. ON RA AND TOLERATING WELL. NO SOB NOTED. NO S/SX OF RESPIRATORY DISTRESS NOTED. A/O X3. BULGARIAN SPEAKING BUT UNDERSTANDS SWISS. IV ACCES IS STEPHAN MIDLINE PRESENT. IV ACCESS IS PATENT, INTACT, AND FLUSHES WELL. HD CATH PRESENT ON R FEMORAL. HD CATH PRESENT ON L IJ. S/P TUNNELED CATHETER INSERTION. SAFETY MEASURES IN PLACE: BED IN LOWEST, LOCKED POSITION, BRAKES ON, SIDE RAILS UP. CALL LIGHT AND TABLE WITHIN REACH. WILL CONTINUE TO MONITOR.
[2021-06-19 20:00] VITALS: BP 143/92
--- NOTE | 2021-06-19 23:45 | NUR ---
ADMINISTERED MORPHINE FOR PAIN, PER MD ORDER. VITAL SIGNS STABLE. WILL CONTINUE TO MONITOR.
[2021-06-20] VITALS (9 sets, daily range): BP systolic 110–145; BP diastolic 54–91
[2021-06-20] MEDS: MORPHINE SULFATE INJ 2 MG/ML DISP.SYRIN IV PRN ×5 (03:29→22:05)
[2021-06-20 06:29] LABS: BASOPHILS % (AUTO) 0.1 % (0.0-2.0); EOSINOPHILS % (AUTO) 1.2 % (0.0-6.0); LYMPHOCYTES # (AUTO) 0.2 K/uL (0.8-4.8); LYMPHOCYTES % (AUTO) 13.4 % (20.0-44.0); MEAN CORPUSCULAR HGB CONC 34 g/dl (31.0-36.0); MEAN CORPUSCULAR VOLUME 92 fL (80-96); MONOCYTES # (AUTO) 0.1 K/uL (0.1-1.30); MONOCYTES % (AUTO) 4.7 % (2.0-12.0); NEUTROPHILS % (AUTO) 80.6 % (43.0-81.0)
[2021-06-20 06:40] LABS: RED BLOOD CELL COUNT(AUTO) 1.86 MIL/uL (4.5-6.0); WHITE BLOOD COUNT (AUTO) 1.2 K/uL (4.3-11.0)
[2021-06-20 06:41] LABS: HEMATOCRIT 17 % (39-51); HEMOGLOBIN 5.8 g/dL (13.5-17.5); PLATELET COUNT (AUTO) 23 K/uL (150-450)
--- NOTE | 2021-06-20 06:42 | NUR ---
RECEIVED CRITICAL LABS @ 0640 FOR WBC OF 1.2, HEMOGLOBIN OF 5.8, AND PLATELETS OF 23. WILL INFORM FRANCE MCCAIN.
--- NOTE | 2021-06-20 06:43 | NUR ---
MS RN CLOSING NOTES PT AWAKE IN BED. PT IS AOx4, LITHUANIAN SPEAKING. ON RA AND TOLERATING WELL. NO SOB NOTED. NO S/SX OF RESPIRATORY DISTRESS NOTED. IV ACCES IS STEPHAN MIDLINE PRESENT. IV ACCESS IS PATENT, INTACT, AND FLUSHES WELL. HD CATH PRESENT ON R FEMORAL. HD CATH PRESENT ON L IJ. S/P TUNNELED CATHETER INSERTION. SITE WAS BLOODY AND CHANGED DRESSING TWICE. TREATED PAIN. ALL NEEDS MET. PT KEPT CLEAN AND DRY. SAFETY MEASURES IN PLACE: BED IN LOWEST, LOCKED POSITION, BRAKES ON, SIDE RAILS UP. CALL LIGHT AND TABLE WITHIN REACH. WILL ENDORSE ONCOMING SHIFT.
--- NOTE | 2021-06-20 06:50 | NUR ---
JAELYN INFORMED DR. ERICKSON REGARDING HEMOGRAM RESULTS WILL HAVE TO INFORM MALICK CHÁVEZ MD. PLACED CALL TO DR. FORREST AWAITING FOR RETURN CALL.
--- NOTE | 2021-06-20 07:16 | NUR ---
MS RN OPENING NOTE RECEIVED PT AWAKE IN BED. A/O X3-4. PT IS CAPE VERDEAN-SPEAKING, BUT UNDERSTANDS ESTONIAN. PT AWAKE IN BED. PT IS ON 3LPM O2 VIA NC TOLERATING WELL. NO SOB OR S/S OF RESPIRATORY DISTRESS NOTED. PT HAS NO C/O PAIN OR DISCOMFORT AT THIS TIME. IV ACCESS IN STEPHAN MIDLINE, INTACT AND PATENT. HD CATH NOTED IN RIGHT GROIN. S/P PERMACATH IN LEFT UPPER CHEST WITH BLOOD- SOILED DRESSING NOTED. SAFETY PRECAUTIONS MAINTAINED. BED IN LOWEST LOCKED POSITION, HOB ELEVATED, SIDE RAILS UP X2. CALL LIGHT AND TABLE WITHIN REACH. WILL CONTINUE WITH PLAN OF CARE.
--- NOTE | 2021-06-20 07:30 | NUR ---
MSRN CALLED BLOOD BANK PRBC TO BEFORE 1100 AM TODAY. INFORMED INCOMING RN. PLACED CALL TO [facility] FOR HD TODAY, WILL SEND HD NURSE FRANCE PER EXCHANGED.
--- NOTE | 2021-06-20 08:15 | NUR ---
MS RN NOTE SURGEON NOTIFIED OF BLEEDING ON ACCESS SITE. WITH ORDERS MADE AND CARRIED OUT. WILL CONTINUE TO MONITOR PATIENT.
[2021-06-20] MEDS ORDERED: CELLULOSE,OXIDIZED 1 EACH EACH MC ONE (09:00)
[2021-06-20] MEDS: ACETAMINOPHEN 325 MG TABLET PO PRN ×2 (09:13→20:03)
[2021-06-20] MEDS: FLUCONAZOLE (100 MG) 100 MG TABLET PO SCH (10:17)
[2021-06-20] MEDS: SEVELAMER CARBONATE 800 MG TABLET PO SCH ×3 (10:17→17:38)
[2021-06-20] MEDS: ACYCLOVIR 200 MG CAPSULE PO SCH (10:19)
--- NOTE | 2021-06-20 10:20 | NUR ---
MS RN NOTE WITH ONGOING BLOOD TRASNFUSION OF 1 UNIT RBC ORDERED. WILL CONTINUT OT MONITOR PATIENT.
[2021-06-20] MEDS: HYDROCODONE/APAP 5/325MG TABLET PO PRN (11:47)
[2021-06-20 11:50] LABS: LYMPHOCYTES % (MANUAL) 14 % (16-48); MONOCYTES % (MANUAL) 4 % (0-11.0); NEUTROPHILS % (MANUAL) 82 (42-76)
[2021-06-20] MEDS: MEROPENEM 500 MG in IV NS 0.9% 50 ML IV SCH ×2 (13:07→23:14)
[2021-06-20] MEDS ORDERED: VANCOMYCIN 1 GM in IV D5W 250 ML IV ONE (14:00)
[2021-06-20] MEDS ORDERED: diphenhydrAMINE HCL 50 MG/ML VIAL IV ONE (14:30)
--- NOTE | 2021-06-20 15:30 | NUR ---
MS RN NOTE PATIENT COMPLETED BT OF 1 UNIT PLATELET ORDERED. TOLERATED WELL WITH NO SIGNS OF DISTRESS. WILL CONTINUE TO MONITOR PATIENT.
[2021-06-20] MEDS: ALLOPURINOL 100 MG TABLET PO SCH (17:38)
--- NOTE | 2021-06-20 19:00 | NUR ---
MS RN CLOSING NOTE PT AWAKE IN BED. A/O X3-4. PT IS SLOVENIAN-SPEAKING, BUT UNDERSTANDS BULGARIAN. PT AWAKE IN BED. PT IS ON 3LPM O2 VIA NC TOLERATING WELL. NO SOB OR S/S OF RESPIRATORY DISTRESS NOTED. PT HAS NO C/O PAIN OR DISCOMFORT AT THIS TIME. IV ACCESS IN STEPHAN MIDLINE, INTACT AND PATENT. HD CATH NOTED IN RIGHT GROIN. S/P PERMACATH IN LEFT UPPER CHEST WITH BLOOD- SOILED DRESSING NOTED. COMPLETED RBC AND PLATELET TRANSFUSION AND ALSO HD. NO ADVERSE REACTION NOTED. SAFETY PRECAUTIONS MAINTAINED. BED IN LOWEST LOCKED POSITION, HOB ELEVATED, SIDE RAILS UP X2. CALL LIGHT AND TABLE WITHIN REACH. WILL ENDORSE TO NEXT SHIFT FOR CONTINUITY OF CARE.
--- NOTE | 2021-06-20 19:30 | NUR ---
MS RN OPENING NOTE RECEIVED PT AWAKE IN BED. A/O X3-4. PT IS TAJIK-SPEAKING, BUT UNDERSTANDS HUNGARIAN. PT AWAKE IN BED. PT IS ON 3LPM O2 VIA NC TOLERATING WELL. NO SOB OR S/S OF RESPIRATORY DISTRESS NOTED. PT HAS NO C/O PAIN OR DISCOMFORT AT THIS TIME. IV ACCESS IN STEPHAN MIDLINE, INTACT AND PATENT. HD CATH NOTED IN RIGHT GROIN. S/P PERMACATH IN LEFT UPPER CHEST WITH NO ACTIVE BLEEDING NOTED. SAFETY PRECAUTIONS MAINTAINED. BED IN LOWEST LOCKED POSITION, HOB ELEVATED, SIDE RAILS UP X2. CALL LIGHT AND TABLE WITHIN REACH. WILL CONTINUE WITH PLAN OF CARE.
--- NOTE | 2021-06-20 20:03 | NUR ---
RN NOTE PT NOTED WITH TEMP OF 100.7. ADMINISTERED TYLENOL 650MG PO Q6H PRN ORDERED. COOLING MEASURES RENDERED. WILL CONTINUE TO MONITOR.
--- NOTE | 2021-06-20 21:03 | NUR ---
RN NOTE TEMP NOTED AT 99.6. WILL CONTINUE COOLING MEASURES AND CONTINUE TO MONITOR PT.
--- NOTE | 2021-06-20 22:05 | NUR ---
RN PAIN PT C/O ACHING PAIN IN THE LOWER GENERALIZED AREA, RATED 10/10 ON PAIN SCALE. VSS. PER PT REQUEST, ADMINISTERED MORPHINE SULFATE 2MG IV Q4H PRN FOR PAIN. WILL REASSESS IN 30 MINS AND CONTINUE TO MONITOR PT.
--- NOTE | 2021-06-20 23:27 | NUR ---
PERFORMED BLADDER SCAN PER ORDER. VOLUME=O ML.
[2021-06-21] VITALS (7 sets, daily range): BP systolic 134–156; BP diastolic 88–98
[2021-06-21] MEDS: MORPHINE SULFATE INJ 2 MG/ML DISP.SYRIN IV PRN ×4 (02:32→21:33)
--- NOTE | 2021-06-21 02:32 | NUR ---
RN PAIN PT C/O ACHING PAIN IN THE GENERALIZED AREA, RATED 10/10 ON PAIN SCALE. VSS. PER PT REQUEST, ADMINISTERED MORPHINE SULFATE 2MG IV Q4H PRN FOR PAIN. WILL REASSESS IN 30 MINS AND CONTINUE TO MONITOR PT.
[2021-06-21 06:08] LABS: BASOPHILS % (AUTO) 0.2 % (0.0-2.0); EOSINOPHILS % (AUTO) 1.7 % (0.0-6.0); LYMPHOCYTES # (AUTO) 0.2 K/uL (0.8-4.8); LYMPHOCYTES % (AUTO) 18.1 % (20.0-44.0); MEAN CORPUSCULAR HGB CONC 34 g/dl (31.0-36.0); MEAN CORPUSCULAR VOLUME 92 fL (80-96); MONOCYTES # (AUTO) 0.1 K/uL (0.1-1.30); MONOCYTES % (AUTO) 4.6 % (2.0-12.0); NEUTROPHILS % (AUTO) 75.4 % (43.0-81.0); RED BLOOD CELL COUNT(AUTO) 2.11 MIL/uL (4.5-6.0)
[2021-06-21 06:13] LABS: HEMATOCRIT 19 % (39-51); HEMOGLOBIN 6.6 g/dL (13.5-17.5); PLATELET COUNT (AUTO) 29 K/uL (150-450); WHITE BLOOD COUNT (AUTO) 1.3 K/uL (4.3-11.0)
--- NOTE | 2021-06-21 06:23 | NUR ---
MS RN CLOSING NOTE PT IS AWAKE IN BED. A/O X3-4. PT IS ROMANSH-SPEAKING, BUT UNDERSTANDS COOK ISLANDER. PT IS ON 3LPM O2 VIA NC TOLERATING WELL. NO SOB OR S/S OF RESPIRATORY DISTRESS NOTED. PT HAS NO C/O PAIN OR DISCOMFORT AT THIS TIME. IV ACCESS IS INTACT, PATENT, AND FLUSHING WELL. HD CATH NOTED IN RIGHT GROIN. S/P PERMACATH IN LEFT UPPER CHEST WITH NO ACTIVE BLEEDING NOTED. ALL NEEDS HAVE BEEN MET. PAIN MANAGEMENT ADMINISTERED PER ORDER. SAFETY PRECAUTIONS MAINTAINED AT ALL TIMES. BED IN LOWEST LOCKED POSITION, HOB ELEVATED, SIDE RAILS UP X2. CALL LIGHT AND TABLE WITHIN REACH. WILL ENDORSE TO ONCOMING NURSE FOR ZOYA.
[2021-06-21 06:39] LABS: CALCIUM, SERUM 7.9 mg/dL (8.5-10.1); MAGNESIUM 2.3 mg/dL (1.8-2.4); PHOSPHORUS 6.7 mg/dL (2.5-4.9); POTASSIUM 4.4 mmol/L (3.5-5.1)
[2021-06-21 06:46] LABS: CREATININE 8.1 mg/dL (0.6-1.3)
[2021-06-21 06:48] LABS: D-DIMER 10.3 mg/L(FEU (0.17-0.50)
--- NOTE | 2021-06-21 07:26 | NUR ---
MS RN OPENING NOTES RECEIVED PT AWAKE IN BED IN NO ACUTE SIGNS OF DISTRESS. A/O X3-4. HEBREW-SPEAKING BUT UNDERSTANDS FILIPINO, DENIES PAIN AT THIS TIME. ON 02 VIA N/C AT 3LPM, TOLERATING WELL WITH NO SOB NOTED. STEPHAN MIDLINE INTACT AND PATENT. HD CATH IN RIGHT GROIN IN PLACED WITH DRESSING C/D/I. PERMACATH IN LEFT UPPER CHEST IN PLACE WITH MINIMAL BLEEDING NOTED, PRESSURE DRESSING KEPT IN PLACE. SAFETY PRECAUTIONS MAINTAINED: BED IN LOWEST LOCKED POSITION, HOB ELEVATED, SIDE RAILS UP X2, CALL LIGHT AND TABLE WITHIN REACH. WILL CONTINUE TO MONITOR PT. .
--- NOTE | 2021-06-21 08:04 | NUR ---
RN NOTES PT OBSERVED VOIDING USING URINAL WITH 300ML CLEAR YELLOW URINE OUTPUT. BLADDER SCAN DONE, NOTED WITH URINE RESIDUALS OF 43ML ONLY. WILL CONTINUE TO MONITOR.
[2021-06-21] MEDS: FLUCONAZOLE (100 MG) 100 MG TABLET PO SCH (08:22)
[2021-06-21] MEDS: ACYCLOVIR 200 MG CAPSULE PO SCH (08:22)
[2021-06-21] MEDS: SEVELAMER CARBONATE 800 MG TABLET PO SCH ×3 (08:22→17:43)
--- NOTE | 2021-06-21 09:30 | NUR ---
RN NOTES DRESSING ON LCW PERMCATH REMOVED, APPLIED SURGICEL THEN APPLIED TRANSPARENT CLEAR DRESSING . WILL CONTINUE TO MONITOR.
--- NOTE | 2021-06-21 10:01 | NUR ---
RN NOTES PT NOTED WITH HGB 6.6 THIS MORNING, STARTED ON BLOOD TRANSFUSION OF PRBC (366 ML) VIA STEPHAN MIDLINE AT 1000. WILL MONITOR FOR ANY ALLERGIC OR ADVERSE REACTIONS.
--- NOTE | 2021-06-21 10:18 | NUR ---
RN NOTES NO ALLERGIC OR ILL EFFECTS NOTED LIKE FEVER, SOB, RASHES ETC, AFTER 15MINUTES OF BLOOD TRANSFUSION. WILL CONTINUE TO MONITOR.
[2021-06-21] MEDS: MEROPENEM 500 MG in IV NS 0.9% 50 ML IV SCH ×2 (11:16→22:19)
--- NOTE | 2021-06-21 13:37 | NUR ---
RN NOTES BLOOD TRANSFUSION JUST FINISHED AND PT TOLERATED WELL WITH NO ALLERGIC OR ADVERSE REACTIONS NOTED.
[2021-06-21] MEDS ORDERED: LIDOCAINE 1%-EPI 1:100,000 20 ML VIAL TP STA (13:50)
--- NOTE | 2021-06-21 15:00 | NUR ---
RN NOTES DR SHAFFER CAME AND REINFORCED LCW PERMACATH SUTURES. NO ACTIVE BLEEDING NOTED AT THIS TIME. DRESSING C/D/I. WILL CONTINUE TO MONITOR.
--- NOTE | 2021-06-21 16:58 | NUR ---
RN NOTES PT NOTED GRIMACING, MOANING AND C/O PAIN ON HIS RIGHT AND LEFT UPPER LOWER BACK, 10/10 SCALE. PRN MORPHINE 2MG IVP ADMINISTERED AT 1657. WILL CONTINUE TO MONITOR AND REASSESS PT.
--- NOTE | 2021-06-21 18:38 | NUR ---
MS RN CLOSING NOTES PT IN BED AWAKE AND RESTING AT MODERATE HIGH BACKREST POSITION. A/O X3-4. TRISTANIAN-SPEAKING BUT UNDERSTANDS URUGUAYAN, ON 02 VIA N/C AT 3LPM, TOLERATING WELL WITH NO SOB NOTED. STEPHAN MIDLINE INTACT, PATENT AND FLUSHES WELL. HD CATH IN RIGHT GROIN IN PLACED WITH DRESSING C/D/I. PERMACATH IN LEFT UPPER CHEST IN PLACE WITH DRESSING IN PLACE, NO ACTIVE BLEEDING NOTED AT THIS TIME. ALL NEEDS AND CARE ATTENDED WELL. SAFETY PRECAUTIONS MAINTAINED: BED IN LOWEST LOCKED POSITION, HOB ELEVATED, SIDE RAILS UP X2, BED ALARM ON, CALL LIGHT AND BEDSIDE TABLE WITHIN REACH. 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
--- NOTE | 2021-06-21 19:30 | NUR ---
MS RN OPENING NOTE RECEIVED PT AWAKE IN BED. A/O X3-4. KHMER-SPEAKING BUT UNDERSTANDS ANGOLAN. PT IS ON O2 3LPM VIA NC, TOLERATING WELL. NO SOB OR S/S OF RESPIRATORY DISTRESS NOTED. PT HAS NO C/O PAIN OR DISCOMFORT AT THIS TIME. PT IV ACCESS IN STEPHAN MIDLINE, INTACT AND PATENT. HD CATH IN RIGHT GROIN IN PLACED WITH DRESSING C/D/I. PERMACATH IN LEFT UPPER CHEST IN PLACE WITH NO ACTIVE BLEEDING NOTED, PRESSURE DRESSING INTACT. SAFETY PRECAUTIONS MAINTAINED. BED IN LOWEST LOCKED POSITION, HOB ELEVATED, SIDE RAILS UP X2. CALL LIGHT AND TABLE WITHIN REACH. WILL CONTINUE WITH PLAN OF CARE.
--- NOTE | 2021-06-21 23:30 | NUR ---
RN NOTE PERFORMED BLADDER SCAN WITH URINE RESIDUAL OF 65ML. WILL CONTINUE TO MONITOR.
[2021-06-22] MEDS: MORPHINE SULFATE INJ 2 MG/ML DISP.SYRIN IV PRN ×3 (02:20→20:16)
--- NOTE | 2021-06-22 02:20 | NUR ---
RN PAIN PT C/O ACHING PAIN IN THE GENERALIZED AREA, RATED 9/10 ON PAIN SCALE. VSS. PER PT REQUEST, ADMINISTERED MORPHINE SULFATE 2MG IV Q4H PRN FOR PAIN. WILL REASSESS IN 30 MINS AND CONTINUE TO MONITOR PT.
[2021-06-22 06:05] LABS: BASOPHILS % (AUTO) 0.2 % (0.0-2.0); EOSINOPHILS % (AUTO) 1.2 % (0.0-6.0); HEMATOCRIT 21 % (39-51); HEMOGLOBIN 7.5 g/dL (13.5-17.5); LYMPHOCYTES # (AUTO) 0.4 K/uL (0.8-4.8); LYMPHOCYTES % (AUTO) 23.6 % (20.0-44.0); MEAN CORPUSCULAR HGB CONC 35 g/dl (31.0-36.0); MEAN CORPUSCULAR VOLUME 91 fL (80-96); MONOCYTES # (AUTO) 0.1 K/uL (0.1-1.30); NEUTROPHILS # (AUTO) 1.1 K/uL (1.8-8.9); RED BLOOD CELL COUNT(AUTO) 2.33 MIL/uL (4.5-6.0)
--- NOTE | 2021-06-22 06:28 | NUR ---
MS RN CLOSING NOTE PT IS AWAKE IN BED. A/O X3-4. PT IS WOLOF-SPEAKING, BUT UNDERSTANDS [place]. PT IS ON O2 3LPM VIA NC, TOLERATING WELL. NO SOB OR S/S OF RESPIRATORY DISTRESS NOTED. PT HAS NO C/O PAIN OR DISCOMFORT AT THIS TIME. IV ACCESS IS INTACT, PATENT, AND FLUSHING WELL. HD CATH IN RIGHT GROIN IN PLACED WITH DRESSING C/D/I. PERMACATH IN LEFT UPPER CHEST IN PLACE WITH NO ACTIVE BLEEDING NOTED, PRESSURE DRESSING INTACT. ALL NEEDS HAVE BEEN MET. PAIN MANAGEMENT ADMINISTERED PER ORDER. SAFETY PRECAUTIONS MAINTAINED AT ALL TIMES. BED IN LOWEST LOCKED POSITION, HOB ELEVATED, SIDE RAILS UP X2. CALL LIGHT AND TABLE WITHIN REACH. WILL ENDORSE TO ONCOMING NURSE FOR ZOYA.
[2021-06-22 06:38] LABS: CALCIUM, SERUM 8.4 mg/dL (8.5-10.1); MAGNESIUM 2.2 mg/dL (1.8-2.4); POTASSIUM 4.9 mmol/L (3.5-5.1)
--- NOTE | 2021-06-22 06:40 | NUR ---
RECEIVED CRITICAL LAB VALUE FOR WBC 1.6 AND PLT 2.2. LAB VALUES REPORTED BY SOILA FROM LAB. READ BACK PROVIDED. PT HAS NO ACTIVE BLEEDING. ILDA, CHARGE NURSE MADE AWARE. WILL ENDORSE TO ONCOMING NURSE.
[2021-06-22 06:44] LABS: PLATELET COUNT (AUTO) 22 K/uL (150-450); WHITE BLOOD COUNT (AUTO) 1.6 K/uL (4.3-11.0)
--- NOTE | 2021-06-22 07:07 | NUR ---
MS RN OPENING NOTES PATIENT RECEIVED IN BED AWAKE A/O X3-4. YORUBA SPEAKING BUT UNDERSTANDS SINHAL[place], DENIES PAIN OR ANY DISCOMFORTS AT THIS TIME. ON 02 VIA N/C AT 3LPM, TOLERATING WELL WITH NO SOB NOTED. STEPHAN MIDLINE INTACT AND PATENT. HD CATH IN RIGHT GROIN AND PERMACATH IN LEFT UPPER CHEST IN PLACE WITH DRESSING C/D/I. SAFETY MEASURES MAINTAINED: BED IN LOWEST LOCKED POSITION, HOB ELEVATED, SIDE RAILS UP X2, CALL LIGHT AND BEDSIDE TABLE WITHIN EASY REACH OF PT. WILL CONTINUE TO MONITOR PT ACCORDINGLY.
[2021-06-22 07:54] LABS: CREATININE 10.2 mg/dL (0.6-1.3)
--- NOTE | 2021-06-22 08:09 | NUR ---
RN NOTES RECEIVED CALL FROM ORTHOPEDIC SHOE MAKER SVEN FIELDS THAT PT HAS CRITICAL HIGH CREATININE 10.2. LEFT MESSAGE TO DR DEGROOT, NO REPLY. LEFT MESSAGE TO DAMON PERRY AND ACKNOWLEDGED, NO NEW ORDER MADE AT THIS TIME.
--- NOTE | 2021-06-22 08:10 | NUR ---
RN NOTES BLADDER SCAN DONE WITH URINE RESIDUALS OF 175 ML NOTED. WILL CONTINUE TO MONITOR
[2021-06-22 08:15] VITALS: BP 146/90
[2021-06-22] MEDS: FLUCONAZOLE (100 MG) 100 MG TABLET PO SCH (08:19)
[2021-06-22] MEDS: ACYCLOVIR 200 MG CAPSULE PO SCH (08:19)
[2021-06-22] MEDS: SEVELAMER CARBONATE 800 MG TABLET PO SCH ×3 (08:19→17:44)
[2021-06-22 09:07] LABS: LYMPHOCYTES % (MANUAL) 20 % (16-48); MONOCYTES % (MANUAL) 12 % (0-11.0); NEUTROPHILS % (MANUAL) 68 (42-76)
[2021-06-22] MEDS: MEROPENEM 500 MG in IV NS 0.9% 50 ML IV SCH ×2 (11:03→22:02)
--- NOTE | 2021-06-22 11:19 | NUR ---
RN NOTES PT C/O PAIN ON HIS RIGHT AND LEFT UPPER LOWER BACK, 10/10 SCALE. PRN MORPHINE 2MG/ML IVP ADMINISTERED AT 1116. WILL CONTINUE TO MONITOR AND REASSESS PT.
[2021-06-22] MEDS: HYDROCODONE/APAP 5/325MG TABLET PO PRN (13:47)
--- NOTE | 2021-06-22 13:48 | NUR ---
RN NOTES PT C/O PAIN ON HIS RIGHT AND LEFT UPPER LOWER BACK, 7/10 SCALE. PRN NORCO 5/325 ADMINISTERED AT 1347. WILL CONTINUE TO MONITOR AND REASSESS PT.
[2021-06-22 16:29] VITALS: BP 160/86
--- NOTE | 2021-06-22 18:05 | NUR ---
RN NOTES RANDOM VANCO RESULTS 25 (HIGH). PHARMACIST SILAS SAID TO HOLD VANCO IV PRN POST HD. WILL ENDORSED TO NEXT SHIFT
--- NOTE | 2021-06-22 18:24 | NUR ---
RN NOTES HEMODIALYSIS JUST STARTED BY DIE TURNER NURSE COCO VIA PT'S LEFT CHEST WALL PERMA CATHETER.
--- NOTE | 2021-06-22 18:44 | NUR ---
MS RN CLOSING NOTES PT IN BED AWAKE AT THIS TIME WITH ONGOING HEMODIALYSIS VIA LEFT UPPER CHEST WALL PERMACATH. PT IS A/O X3-4. ICELANDIC-SPEAKING BUT UNDERSTANDS IRISH. ON 02 VIA N/C AT 3LPM, TOLERATING WELL WITH NO SOB NOTED. STEPHAN MIDLINE INTACT, PATENT AND FLUSHES WELL. HD CATH IN RIGHT GROIN IN PLACED WITH DRESSING C/D/I. ALL NEEDS AND CARE ATTENDED WELL. SAFETY PRECAUTIONS MAINTAINED: BED IN LOWEST LOCKED POSITION, HOB ELEVATED, SIDE RAILS UP X2, BED ALARM ON, CALL LIGHT AND BEDSIDE TABLE WITHIN REACH. WILL ENDORSE ZOYA TO YARD CONDUCTOR NURSE.
--- NOTE | 2021-06-22 19:10 | NUR ---
RN OPENING NOTE RECEIVED PT IN BED, ONGOING DIALYSIS WITH HD NURSE AT BEDSIDE. PT IS AWAKE, A/OX3-4, ABLE TO MAKE NEEDS KNOWN. DENIES PAIN/DISCOMFORT AT THIS TIME. RESPIRATIONS EVEN AND UNLABORED, ON 02 @3LPM VIA N/C. STEPHAN MIDLINE INTACT AND PATENT. HD CATH IN RIGHT GROIN AND PERMACATH IN LEFT UPPER CHEST IN PLACE WITH DRESSING C/D/I. PT IN NO ACUTE DISTRESS. SAFETY MEASURES IN PLACE, BED IN LOWEST LOCKED POSITION, S/R UP X2, CALL LIGHT WITHIN REACH. WILL CONTINUE TO MONITOR.
--- NOTE | 2021-06-22 20:05 | NUR ---
RN NOTE HD DONE, OUTPUT 1000ML PER HD NURSE. PT IN NO ACUTE DISTRESS.
[2021-06-22] MEDS: ALLOPURINOL 100 MG TABLET PO SCH (20:16)
--- NOTE | 2021-06-22 20:16 | NUR ---
RN NOTE PT C/O PAIN TO BACK 9/10, GIVEN MORPHINE 2MG IV ORDERED, AND POSITIONED FOR COMFORT. WILL CONT TO MONITOR.
[2021-06-22 20:32] VITALS: BP_SYST 138; BP_SYST 143; BP_DIAS 103; BP_DIAS 68
--- NOTE | 2021-06-22 22:00 | NUR ---
RN NOTE IV VANCOMYCIN NOT GIVEN. RANDOM VANCO=25
[2021-06-22] MEDS: VANCOMYCIN 500 MG in IV D5W 100 ML IV PRN (22:01)
--- NOTE | 2021-06-22 23:32 | NUR ---
RN NOTE BLADDER SCAN DONE WITH 223ML URINE RESIDUAL NOTED. WILL CONT TO MONITOR.
[2021-06-23] MEDS: MORPHINE SULFATE INJ 2 MG/ML DISP.SYRIN IV PRN ×4 (03:12→16:52)
--- NOTE | 2021-06-23 03:12 | NUR ---
RN NOTE PT C/O 10/10 PAIN TO BACK, MOANING/GRIMACING. GIVEN IV MORPHINE 2MG ORDERED AND POSITIONED FOR COMFORT
[2021-06-23] MEDS: VANCOMYCIN 500 MG in IV D5W 100 ML IV PRN (03:32)
--- NOTE | 2021-06-23 06:53 | NUR ---
RN CLOSING NOTE PT RESTING IN BED, EASILY AWAKENS TO STIMULI. A/OX3-4. DENIES PAIN/DISCOMFORT AT THIS TIME. ON O2 @3LPM VIA NC. DENIES SOB. BLADDER SCAN DONE, NOTED 283ML RESIDUAL. PT ABLE TO USE THE URINAL, WITH OUTPUT 125ML. WILL CONT TO MONITOR. NO ACUTE EVENTS DURING THE NIGHT. SAFETY MEASURES MAINTAINED, BED IN LOWEST LOCKED POSITION, S/R UPX2, CALL LIGHT WITHIN REACH. WILL ENDORSE TO NEXT SHIFT NURSE.
--- NOTE | 2021-06-23 07:37 | NUR ---
RN OPENING NOTE PT AWAKE IN BED. ON RA WITH NO SOB AND NO RESPIRATORY DISTRESS. A/O X3 AND UNDERSTANDS BELARUSIAN. EPISODES OF CONFUSION. NO SWING MANAGER PRESENT. NO EDEMA PRESENT. BEDBOUND. SKIN IS INTACT. MIDLINE PRESENT OF STEPHAN AND FLUSHES WELL. HD CATH PRESENT ON R FEMORAL and L IJ. LABS AND ORDERS REVIEWED. SAFETY MEASURES IN PLACE. SIDE RAILS RAISED. BED LOWERED. CALL LIGHT WITHIN REACH. WILL CONTINUE TO MONITOR.
[2021-06-23 08:00] VITALS: BP 129/87
[2021-06-23] MEDS: ACYCLOVIR 200 MG CAPSULE PO SCH (08:22)
[2021-06-23] MEDS: SEVELAMER CARBONATE 800 MG TABLET PO SCH ×3 (08:22→17:00)
[2021-06-23] MEDS: FLUCONAZOLE (100 MG) 100 MG TABLET PO SCH (08:22)
--- NOTE | 2021-06-23 08:41 | NUR ---
RN NOTE RING GIVEN TO PT
[2021-06-23] MEDS: MEROPENEM 500 MG in IV NS 0.9% 50 ML IV SCH (11:29)
[2021-06-23 16:00] VITALS: BP 138/78
[2021-06-23] MEDS: HYDROCODONE/APAP 5/325MG TABLET PO PRN (18:13)
--- NOTE | 2021-06-23 18:22 | NUR ---
CAMP COUNSELOR NOTE PT DISCHARGED TO [facility]. REPORT CALLED TO . EX[employer] EDUCATION UTILIZED AND GIVEN TO EMT. PRESCRIPTIONS CHECKED AND MED RECON GIVEN TO EMT.SKIN IS INTACT. IV LINES REMOVED. ID BAND REMOVED. PT TRANSPORTED OUT OF HOSPITAL VIA AMBULANCE ACCOMPANIED BY SERVER SUPPORT TECHNICIAN.
== END 2021-06-23 18:25 | DRG 691 ==
LOC: ER 12:29 → TRANSITION 15:00 → ICU 19:15 → TELE-TD 06-08 10:30 → TELE1 06-08 10:40 → MEDSG1 06-10 09:30 → MED 06-11 21:58
PROVIDERS: ADMIT Internal Medicine; ATTEND Nurse Practitioner Family
PROC: 06HY33Z Insertion of Infusion Device into Lower Vein, Percutaneous Approach (ICD-10-PCS; 2021-06-07)
PROC: 5A1D70Z Performance of Urinary Filtration, Intermittent, Less than 6 Hours Per Day (ICD-10-PCS; 2021-06-07)
PROC: 05H533Z Insertion of Infusion Device into Right Subclavian Vein, Percutaneous Approach (ICD-10-PCS; 2021-06-09)
PROC: B546ZZA Ultrasonography of Right Subclavian Vein, Guidance (ICD-10-PCS; 2021-06-09)
PROC: 30233N1 Transfusion of Nonautologous Red Blood Cells into Peripheral Vein, Percutaneous Approach (ICD-10-PCS; principal; 2021-06-11)
PROC: 0JH63XZ Insertion of Tunneled Vascular Access Device into Chest Subcutaneous Tissue and Fascia, Percutaneous Approach (ICD-10-PCS; 2021-06-19)
PROC: 02HV33Z Insertion of Infusion Device into Superior Vena Cava, Percutaneous Approach (ICD-10-PCS; 2021-06-19)
PROC: B518YZA Fluoroscopy of Superior Vena Cava using Other Contrast, Guidance (ICD-10-PCS; 2021-06-19)
PROC: 05WYX3Z Revision of Infusion Device in Upper Vein, External Approach (ICD-10-PCS; 2021-06-21)
DX: C90.00 Multiple myeloma not having achieved remission (principal); G93.41 Metabolic encephalopathy; N17.0 Acute kidney failure with tubular necrosis; E88.3 Tumor lysis syndrome; D61.818 Other pancytopenia; Z94.81 Bone marrow transplant status; E83.39 Other disorders of phosphorus metabolism; D70.9 Neutropenia, unspecified; E83.42 Hypomagnesemia; E87.5 Hyperkalemia; Z20.822 Contact with and (suspected) exposure to COVID-19; D64.9 Anemia, unspecified; E79.0 Hyperuricemia without signs of inflammatory arthritis and tophaceous disease; R50.81 Fever presenting with conditions classified elsewhere; T82.838A Hemorrhage due to vascular prosthetic devices, implants and grafts, initial encounter; Y83.8 Other surgical procedures as the cause of abnormal reaction of the patient, or of later complication, without mention of misadventure at the time of the procedure; Y92.230 Patient room in hospital as the place of occurrence of the external cause; Z79.899 Other long term (current) drug therapy
CPT/HCPCS: 36410; 36415; 70450-TC; 71045-TC; 76770-TC; 80048-TC; 80053-TC; 80061-TC; 80076-TC; 80202-TC; 81001; 82140-TC; 82550-TC; 82570-TC; 82962-TC; 83540-TC; 83605-TC; 83735-TC; 83970; 84100-TC; 84155; 84155-TC; 84165; 84300-TC; 84443-TC; 84484-TC; 84550-TC; 85025-TC; 85027-TC; 85396; 85610-TC; 85730-TC; 86704; 86705; 86706; 86803; 86850-TC; 87040-TC; 87081-TC; 87086-TC; 87340; 90935-TC; 97110-TC; 97112-TC; 97116-TC; 97530-TC; A6403; C1750; C1757; C1769; C1894; G0378; G0480; J0360; J0690; J1200; J1447; J1644; J1815; J1940; J2060; J2185; J2270; J2405; J2543; J2597; J2704; J2997; J3010; J3370; J3490; J7030; J7040; J7050; J7060; P9016